=== PATIENT | male | born 1970 | race Caucasian/White ===

== ENCOUNTER 2017-01-05 16:36 | Emergency (ER) | payer SELFPAY ==
[~2017-01-05] VITALS: Ht 170.2 cm; Wt 81.6 kg
[~2017-01-05 16:36] MED LIST: LISI30TA4 PO; LORA2TAB PO; TEMA30CA PO; brintellix PO
[2017-01-05 16:44] VITALS: BP 154/99
--- NOTE | 2017-01-05 17:10 | PHYS DOC ---
Past Medical History Past Medical History: Anxiety, Depression, Hypertension Past Surgical History: No Surgical History Alcohol Use: Sober Drug Use: None Adult General Chief Complaint Chief Complaint: HIP PAIN HPI HPI Patient is a 46 year old male presents to the emergency department stating that he's been having right hip pain and discomfort for a long time. Patient states today he was standing in his right leg gave out. He has not taken anything for pain and discomfort. His significant other states that he was awakened every hour for pain and discomfort to the night last night. Patient denies any numbness or tingling down to the lower extremity however he does state that the pain does radiate into the upper thigh. Patient also states that he occasionally has some back pain and discomfort associated with it. Patient denies any trauma or injury to his back. Review of Systems Review of Systems Constitutional: Denies fever or chills [] Eyes: Denies change in visual acuity, redness, or eye pain [] HENT: Denies nasal congestion or sore throat [] Respiratory: Denies cough or shortness of breath [] Cardiovascular: No additional information not addressed in HPI [] GI: Denies abdominal pain, nausea, vomiting, bloody stools or diarrhea [] : Denies dysuria or hematuria [] Musculoskeletal: Right lower back pain, hip pain Integument: Denies rash or skin lesions [] Neurologic: Denies headache, focal weakness or sensory changes [] Endocrine: Denies polyuria or polydipsia [] Current Medications Current Medications Current Medications Medications (Trade) Dose Ordered Sig/[facility] Start Time Stop Time Status Last Admin Dose Admin Ibuprofen (Motrin) 800 mg 1X ONCE 01/05/17 17:15 01/05/17 17:16 DC 01/05/17 17:27 800 MG Allergies Allergies Allergies Coded Allergies Type Severity Reaction Last Updated Verified No Known Drug Allergies 11/26/13 No Physical Exam Physical Exam Constitutional: Well developed, well nourished, no acute distress, non-toxic appearance. [] HENT: Normocephalic, atraumatic, bilateral external ears normal, oropharynx moist, no oral exudates, nose normal. [] Eyes: PERRLA, EOMI, conjunctiva normal, no discharge. [] Neck: Normal range of motion, no tenderness, supple, no stridor. [] Cardiovascular:Heart rate regular rhythm, no murmur [] Lungs & Thorax: Bilateral breath sounds clear to auscultation [] Skin: Warm, dry, no erythema, no rash. [] Back: No tenderness Extremities: Right hip tenderness noted, no cyanosis, no clubbing, ROM intact, no edema. Peripheral pulses 2+, Refill brisk less than 2 seconds. Patient's able to ambulate with a somewhat of a good steady gait. Neurologic: Alert and oriented X 3, normal motor function, normal sensory function, no focal deficits noted. [] Psychologic: Affect normal, judgement normal, mood normal. [] Current Patient Data Vital Signs Vital Signs Date Time Temp Pulse Resp B/P (MAP) Pulse Ox O2 Delivery O2 Flow Rate FiO2 01/05/17 16:44 97.9 92 18 98 Room Air 97.9 EKG EKG [] Radiology/Procedures Radiology/Procedures [] Course & Med Decision Making Course & Med Decision Making Pertinent Labs and Imaging studies reviewed. (See chart for details) X-rays were negative per Dr. Shin. Patient will be discharged home with recommendations for ibuprofen 800 mg every 8 hours. He'll be provided with prescription for Flexeril with recommendations to follow-up with a orthopedic or primary care physician in the next week. Signs symptoms to return back to emergency prior has been provided. Patient was also instructed Flexeril will cause drowsiness do not take any be alert and oriented. Patient agrees with discharge instructions, treatment regimens and follow-up recommendations. All questions and concerns were answered at patient's bedside. Dragon Disclaimer Dragon Disclaimer This electronic medical record was generated, in whole or in part, using a voice recognition dictation system. Departure Departure Impression: Primary Impression: Hip pain, right Disposition: 01 HOME, SELF-CARE Condition: STABLE Referrals: CHIARA RICHARDSON (PCP) Patient Instructions: Hip Pain Additional Instructions: Your x-rays were negative for any bony abnormalities. Ibuprofen 800 mg every 8 hours they sure you take this medication with food as it may cause an upset stomach. Flexeril will help with muscle spasms and discomfort around the sciatic area. This medication will cause drowsiness do not take any be alert and oriented. Ice packs on 20 minutes off 20 minutes several times a day. Follow-up with your primary care physician or orthopedic within the next week. Return back to emergency prior signs symptoms of become worse. Scripts Cyclobenzaprine Hcl (CYCLOBENZAPRINE HCL) 10 Mg Tablet 10 MG PO TID, #30 TAB Prov: NANCY BRYAN APRN 01/05/17 NANCY BRYAN APRN Jan 05, 2017 17:10
[2017-01-05] MEDS ORDERED: IBUPROFEN 800 MG TABLET. PO ONE (17:15)
[2017-01-05] MEDS ORDERED: CYCL10TA2 PO (17:52)
--- NOTE | 2017-01-06 10:52 | RAD ---
AP pelvis radiograph to include AP and lateral radiographs of the right hip January 05, 2017 Clinical history: Chronic right hip pain for the last year. The patient's right hip gave out earlier today. An AP digital radiograph of the pelvis to include both hips was obtained. AP and lateral digital radiographs of the right hip were obtained. No pelvic bone fracture is seen. No fracture or dislocation of either hip is noted. Moderate to severe degenerative changes are seen involving both hips, right greater than left. These consist of joint compartment narrowing, subchondral sclerosis and osteophyte formation. Subchondral cyst formation is seen bilaterally. Impression: Moderate to severe degenerative changes are seen involving both hips, right greater than left. No acute osseous abnormality is seen.
== END 2017-01-05 18:07 | disposition home or self-care (01) ==
LOC: ER 16:36
DX: M25.551 Pain in right hip (principal); M54.5 Low back pain; F41.9 Anxiety disorder, unspecified; F32.9 Major depressive disorder, single episode, unspecified; I10 Essential (primary) hypertension
CPT/HCPCS: 73502; 99284

== ENCOUNTER 2018-05-20 10:13 | Emergency (ER) | payer SELFPAY ==
[~2018-05-20] VITALS: Ht 170.2 cm; Wt 81.6 kg
[~2018-05-20 10:13] MED LIST changes: +CYCL10TA2 PO
[2018-05-20 10:42] VITALS: BP 153/92
[2018-05-20] MEDS ORDERED: KETOROLAC 60 MG/2 ML VIAL. IM ONE (10:45)
[2018-05-20] MEDS ORDERED: ORPHENADRINE CITRATE 60 MG/2 ML VIAL. IM ONE (10:45)
--- NOTE | 2018-05-20 11:17 | RAD ---
Indication: Right hip pain for 3 years, worse in last 6 months. No known injury TECHNIQUE: 2 views of the right hip COMPARISON: This exam from 01/05/2017 FINDINGS/ impression: No acute fracture or dislocation. Advanced right hip joint osteoarthritis. Electronically signed by: Arron Cheney DO (05/20/2018 11:13 AM) [facility]
[2018-05-20] MEDS ORDERED: ORPH100T PO (11:30)
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
== END 2018-05-20 11:42 | disposition home or self-care (01) ==
LOC: ER 10:13
DX: M25.551 Pain in right hip (principal); M54.41 Lumbago with sciatica, right side; I10 Essential (primary) hypertension
CPT/HCPCS: 73502; 96372; 99283; J1885; J2360

== ENCOUNTER 2018-08-04 11:19 | Inpatient (IN) | payer SELFPAY ==
[~2018-08-04] VITALS: Ht 170.2 cm; Wt 79.4 kg
[~2018-08-04 11:19] MED LIST changes: +ORPH100T PO
[2018-08-04] MEDS ORDERED: VANCOMYCIN 2 GM in IV NORMAL SALINE 500ML BAG 500 ML IV ONE (12:15)
[2018-08-04] MEDS ORDERED: VANCOMYCIN PER PHARMACY MC ONE (12:15)
[2018-08-04] MEDS ORDERED: DIPHTH,PERTUSS(ACELL),TET TOX 0.5 ML DISP.SYRIN. VAX IM ONE (12:15)
[2018-08-04] MEDS ORDERED: PIPERACILLIN/TAZOBACTAM 4.5 GM in IV NORMAL SALINE 100ML 100 ML IV ONE (12:15)
[2018-08-04 12:24] LABS: CALCIUM 9.2 mg/dL (8.5-10.1); CREATININE 0.7 mg/dL (0.7-1.3); GFR 119.9; POTASSIUM 3.7 mmol/L (3.5-5.1)
[2018-08-04 12:31] LABS: ALBUMIN/GLOBULIN RATIO 0.7 (1.0-1.7); TOTAL BILIRUBIN 0.7 mg/dL (0.2-1.0); TOTAL PROTEIN 7.3 g/dL (6.4-8.2)
--- NOTE | 2018-08-04 12:36 | PDOC1 ---
History and Physical Date of Admission Date of Admission DATE: 08/04/18 TIME: 12:36 Identification/Chief Complaint Chief Complaint seen in er , presents to the ED today with complaints of right hand swelling and redness that began 4 days ago. states he has not used IV drugs for a while. Patient denies any fever. states he works at [employer] and is poked with splinters often, wonders if these are spider bites, they look concerning for iv drug use with abscesses Past Medical History Past Medical History Past Medical History Past Medical History Past Medical History: Anxiety, Depression, Hypertension Past Surgical History: No Surgical History Alcohol Use: Sober Drug Use: None PAST HX IV DRUG ABUSE FAMILY HX FATHER DIABETES Cardiovascular: HTN Psych: Anxiety, Depression Renal/: No pertinent hx Family History Family History: Alcohol Abuse, Diabetes, Heart Disease Social History Smoke: <1 pack per day ALCOHOL: other Drugs: None Current Medications Current Medications Current Medications Sodium Chloride 1,000 ml @ 166.667 mls/hr Q6H IV ; Start 08/04/18 at 12:04; Stop 08/04/18 at 23:55 Piperacillin Sod/ Tazobactam Sod 4.5 gm/Sodium Chloride 100 ml @ 200 mls/hr 1X ONCE IV ; Start 08/04/18 at 12:15; Stop 08/04/18 at 12:44 Vancomycin HCl (Vanco Per Pharmacy) 1 each 1X ONCE [facility] ; Start 08/04/18 at 12:15 ; Stop 08/04/18 at 12:16; Status DC Diphtheria/ Tetanus/Acell Pertussis (Boostrix) 0.5 ml ONCE ONCE VAX IM ; Start 08/04/18 at 12:15; Stop 08/04/18 at 12:16; Status DC Vancomycin HCl 2 gm/Sodium Chloride 500 ml @ 250 mls/hr 1X ONCE IV ; Start 04/14 at 12:15; Stop 08/04/18 at 14:14 Active Scripts Active Orphenadrine Citrate 100 Mg Tablet.er 1 Tab PO BID Driving or alcohol intake while taking this medication Cyclobenzaprine Hcl 10 Mg Tablet 10 Mg PO TID Reported [brintellix] 10 10 Mg PO DAILY Lisinopril 30 Mg Tablet 30 Mg PO DAILY Lorazepam 2 Mg Tablet 3 Mg PO DAILY Temazepam 30 Mg Capsule 30 Mg PO HS PRN Allergies Allergies: Coded Allergies: No Known Drug Allergies (Unverified , 7/3/14) ROS Review of System Review of Systems Review of Systems Constitutional: pos fever or chills [] Eyes: Denies change in visual acuity, redness, or eye pain [] HENT: Denies nasal congestion or sore throat [] Respiratory: Denies cough or shortness of breath [] Cardiovascular: No additional information not addressed in HPI [] GI: Denies abdominal pain, nausea, vomiting, bloody stools or diarrhea [] : Denies dysuria or hematuria [] Musculoskeletal: Reports right hand swelling and redness Integument: Denies rash or skin lesions [] Neurologic: Denies headache, focal weakness or sensory changes [] 14 pt systems were reviewed and found to be within normal limits, except as documented General: YES: Chills, Fatigue, Malaise Eyes: No Blurry vision, No Decreased vision, No Double vision, No Dry eyes, No Excessive tearing, No Eye Pain, No Itchy Eyes, No Loss of vision, No Photophobia , No Scotomata, No Uses contacts, No Uses glasses, No Other HEENT: No: Heacaches, Visual Changes, Hearing change, Nasal congestion, Nasal discharge, Oral lesions, Sinus pain, Sore Throat, Epistaxis, Sneezing, Snoring, Tinnitus, Vertigo, Vocal changes, Other Respiratory: No: Cough, Hemoptysis, Orthopnea, Pleuritic Pain, Shortness of breath, SOB with excertion, Sputum Changes, Stridor, Tachypnea, Wheezing, Other Cardiovascular: No Chest Pain, No Palpitations, No Orthopnea, No Paroxysmal Noc. Dyspnea, No Edema, No Lt Headedness, No Other Gastrointestinal: No Nausea, No Vomiting, No Abdominal Pain, No Diarrhea, No Constipation, No Melena, No Hematochezia, No Other Musculoskeletal: Yes Joint Pain, Yes Joint Stiffness Neurological: No Behavorial Changes, No Bowel/Bladder ControlChng, No Confusion , No Dizziness, No Gait Disturbance, No Headaches, No Impaired Coord/balance, No Memory Loss, No Numbness/Tingling, No Seizures, No Speech Problems, No Tremors, No Visual Changes, No Weakness, No Other Skin: Yes Skin Lesion Changes Physical Exam Physical Exam Physical Exam Physical Exam Constitutional: Well developed, well nourished, no acute distress, non-toxic appearance. [] HENT: Normocephalic, atraumatic, bilateral external ears normal, oropharynx moist, no oral exudates, nose normal. [] Eyes: PERRLA, EOMI, conjunctiva normal, no discharge. [] Neck: Normal range of motion, no tenderness, supple, no stridor. [] Cardiovascular:Heart rate regular rhythm, no murmur [] Lungs & Thorax: Bilateral breath sounds clear to auscultation [] Abdomen: Bowel sounds normal, soft, no tenderness, no masses, no pulsatile masses. [] Skin: Right dorsal hand with moderate swelling, there is mild swelling around the wrist. There is multiple open wounds on the right hand, or significance is on the right fifth metacarpal approximately 0.5 x 0.5 cm with yellow drainage, moderate puss from the area. There is another open wound on the dorsal wrist approximately 2 x 1 cm with fluctuant There is moderate cellulitis of the right hand and small amount on the right fingers. Patient able to flex and extend the fingers. Patient able to flex and extend the wrist. Adequate radial, medial, ulnar sensation to the right hand. +2 right radial pulse. Back: No tenderness, no CVA tenderness. [] Extremities: No tenderness, no cyanosis, no clubbing, ROM intact, no edema. [] Neurologic: Alert and oriented X 3, normal motor function, normal sensory function, no focal deficits noted. [] Psychologic: Affect normal, judgement normal, mood normal. [] General: Alert, Oriented X3, Cooperative, moderate distress Lungs: Clear to auscultation Breasts: Not examined Abdomen: Soft Rectal Exam: not examined PELVIC: Examination not indicated Extremities: No clubbing, No cyanosis Neuro: Normal gait, Cranial nerves 3-12 NL Psych/Mental Status: Mental status NL, Mood NL Vitals Vitals Vital Signs Date Time Temp Pulse Resp B/P (MAP) Pulse Ox O2 Delivery O2 Flow Rate FiO2 08/04/18 11:50 97.8 103 20 132/74 (93) 95 Room Air 97.8 Labs Labs Laboratory Tests Test 08/04/18 11:50 Sodium Level 140 mmol/L (136-145) Potassium Level 3.7 mmol/L (3.5-5.1) Chloride Level 103 mmol/L (98-107) Carbon Dioxide Level 24 mmol/L (21-32) Anion Gap 13 (6-14) Blood Urea Nitrogen 5 mg/dL (8-26) Creatinine 0.7 mg/dL (0.7-1.3) Estimated GFR (Cockcroft-Gault) 119.9 BUN/Creatinine Ratio 7 (6-20) Glucose Level 129 mg/dL (70-99) Calcium Level 9.2 mg/dL (8.5-10.1) Total Bilirubin 0.7 mg/dL (0.2-1.0) Aspartate Amino Transf (AST/SGOT) 15 U/L (15-37) Alanine Aminotransferase (ALT/SGPT) 11 U/L (16-63) Alkaline Phosphatase 96 U/L (46-116) Total Protein 7.3 g/dL (6.4-8.2) Albumin 3.0 g/dL (3.4-5.0) Albumin/Globulin Ratio 0.7 (1.0-1.7) Laboratory Tests Test 08/04/18 11:50 Sodium Level 140 mmol/L (136-145) Potassium Level 3.7 mmol/L (3.5-5.1) Chloride Level 103 mmol/L (98-107) Carbon Dioxide Level 24 mmol/L (21-32) Anion Gap 13 (6-14) Blood Urea Nitrogen 5 mg/dL (8-26) Creatinine 0.7 mg/dL (0.7-1.3) Estimated GFR (Cockcroft-Gault) 119.9 BUN/Creatinine Ratio 7 (6-20) Glucose Level 129 mg/dL (70-99) Calcium Level 9.2 mg/dL (8.5-10.1) Total Bilirubin 0.7 mg/dL (0.2-1.0) Aspartate Amino Transf (AST/SGOT) 15 U/L (15-37) Alanine Aminotransferase (ALT/SGPT) 11 U/L (16-63) Alkaline Phosphatase 96 U/L (46-116) Total Protein 7.3 g/dL (6.4-8.2) Albumin 3.0 g/dL (3.4-5.0) Albumin/Globulin Ratio 0.7 (1.0-1.7) Images Images Three-view right hand dated 08/04/2018. No comparison available. CLINICAL INDICATION: Multiple right hand and wrist wound. FINDINGS: 3 views the right hand show normal bony alignment. No displaced fracture. There is an old healed fracture of the fifth metacarpal. No periostitis or bone destruction. Mild soft tissue swelling. No soft tissue gas. IMPRESSION: 1. Mild soft tissue swelling with no apparent underlying acute bony abnormality. 2. Old healed fracture of the fifth metacarpal. Electronically signed by: Tray Ambriz MD (08/04/2018 12:39 PM) [id number] VTE Prophylaxis Ordered VTE Prophylaxis Devices: Yes VTE Pharmacological Prophylaxi: Yes Assessment/Plan Assessment/Plan impression 1. severe cellulitis right hand and wrist, mri may be useful to exclude synovial / tendon/ involvement 2. hx iv drug abuse in past plan ortho consult mri right hand and wrist iv vanc blood cult ID CONSULT SQ LOVENOX DVT PROPHYLAXIS DT 90 MIN VISIT/ ADMIT TIME SHELBIE LANDIS MD Aug 04, 2018 12:36
--- NOTE | 2018-08-04 12:42 | RAD ---
Three-view right hand dated 08/04/2018. No comparison available. CLINICAL INDICATION: Multiple right hand and wrist wound. FINDINGS: 3 views the right hand show normal bony alignment. No displaced fracture. There is an old healed fracture of the fifth metacarpal. No periostitis or bone destruction. Mild soft tissue swelling. No soft tissue gas. IMPRESSION: 1. Mild soft tissue swelling with no apparent underlying acute bony abnormality. 2. Old healed fracture of the fifth metacarpal. Electronically signed by: Tray Ambriz MD (08/04/2018 12:39 PM) [id number]
[2018-08-04 12:45] VITALS: BP 129/87
[2018-08-04 12:46] LABS: BASO # 0.1 x10^3/uL (0.0-0.2); BASO % 1 % (0-3); EOS % 0 % (0-3); HEMATOCRIT 40.2 % (39.0-53.0); HEMOGLOBIN 13.4 g/dL (13.0-17.5); LYMPH # 1.1 x10^3/uL (1.0-4.8); LYMPH % 8 % (24-48); MEAN CORPUSCULAR HEMOGLOBIN 29 pg (25-35); MEAN CORPUSCULAR HGB CONC 33 g/dL (31-37); MEAN CORPUSCULAR VOLUME 86 fL (79-100); MONO # 0.7 x10^3/uL (0.0-1.1); MONO % 5 % (0-9); NEUT # 11.3 x10^3uL (1.8-7.7); NEUT % 86 % (31-73); PLATELET COUNT 243 x10^3/uL (140-400); RED BLOOD COUNT 4.67 x10^6/uL (4.30-5.70); RED CELL DISTRIBUTION WIDTH 13.9 % (11.5-14.5); WHITE BLOOD COUNT 13.2 x10^3/uL (4.0-11.0)
[2018-08-04] MEDS ORDERED: ONDANSETRON PF 4 MG/2 ML VIAL. IV PRN ×2 (13:00→16:15)
[2018-08-04] MEDS ORDERED: IV NORMAL SALINE 1000ML BAG 1,000 ML IV ONE (13:00)
[2018-08-04] MEDS: IV NORMAL SALINE 1000ML BAG 1,000 ML IV SCH ×3 (13:04→18:04)
[2018-08-04] MEDS ORDERED: MORPHINE SULFATE 4 MG/ML VIAL. ONE (13:07)
[2018-08-04] MEDS: MORPHINE SULFATE 4 MG/ML VIAL. IV PRN ×6 (13:09→23:45)
--- NOTE | 2018-08-04 13:55 | PHYS DOC ---
Past Medical History Past Medical History: Anxiety, Depression, Hypertension Past Surgical History: No Surgical History Alcohol Use: Sober Drug Use: None Adult General Chief Complaint Chief Complaint: SKIN PROBLEM HPI HPI Patient is a 47 year old male with history of IV drug use who presents to the ED today with complaints of right hand swelling and redness that began 4 days ago. Patient states he has not used IV drugs for a while. Patient denies any fever. Patient is right-handed. PCP none Review of Systems Review of Systems Constitutional: Denies fever or chills [] Eyes: Denies change in visual acuity, redness, or eye pain [] HENT: Denies nasal congestion or sore throat [] Respiratory: Denies cough or shortness of breath [] Cardiovascular: No additional information not addressed in HPI [] GI: Denies abdominal pain, nausea, vomiting, bloody stools or diarrhea [] : Denies dysuria or hematuria [] Musculoskeletal: Reports right hand swelling and redness Integument: Denies rash or skin lesions [] Neurologic: Denies headache, focal weakness or sensory changes [] All other systems were reviewed and found to be within normal limits, except as documented in this note. Current Medications Current Medications Current Medications Medications (Trade) Dose Ordered Sig/Tlyer Start Time Stop Time Status Last Admin Dose Admin Diphtheria/ Tetanus/Acell Pertussis (Boostrix) 0.5 ml ONCE ONCE 08/04/18 12:15 08/04/18 12:16 DC 08/04/18 13:09 0.5 ML Piperacillin Sod/ Tazobactam Sod 4.5 gm/Sodium Chloride 100 ml @ 200 mls/hr 1X ONCE 08/04/18 12:15 08/04/18 12:44 DC 08/04/18 13:05 200 MLS/HR Sodium Chloride 1,000 ml @ 166.667 mls/hr Q6H 08/04/18 12:04 08/04/18 23:55 08/04/18 13:04 166.667 MLS/HR Vancomycin HCl (Vanco Per Pharmacy) 1 each 1X ONCE 08/04/18 12:15 08/04/18 12:16 DC Vancomycin HCl 2 gm/Sodium Chloride 500 ml @ 250 mls/hr 1X ONCE 08/04/18 12:15 08/04/18 14:14 08/04/18 13:39 250 MLS/HR Allergies Allergies Allergies Coded Allergies Type Severity Reaction Last Updated Verified No Known Drug Allergies 11/26/13 No Physical Exam Physical Exam Constitutional: Well developed, well nourished, no acute distress, non-toxic appearance. [] HENT: Normocephalic, atraumatic, bilateral external ears normal, oropharynx moist, no oral exudates, nose normal. [] Eyes: PERRLA, EOMI, conjunctiva normal, no discharge. [] Neck: Normal range of motion, no tenderness, supple, no stridor. [] Cardiovascular:Heart rate regular rhythm, no murmur [] Lungs & Thorax: Bilateral breath sounds clear to auscultation [] Abdomen: Bowel sounds normal, soft, no tenderness, no masses, no pulsatile masses. [] Skin: Right dorsal hand with moderate swelling, there is mild swelling around the wrist. There is multiple open wounds on the right hand, or significance is on the right fifth metacarpal approximately 0.5 x 0.5 cm with yellow drainage, went ahead and expressed moderate puss from the area. There is another open wound on the dorsal wrist approximately 2 x 1 cm with fluctuant but patient is refusing to let me touch it. There is moderate cellulitis of the right hand and small amount on the right fingers. Patient able to flex and extend the fingers. Patient able to flex and extend the wrist. Adequate radial, medial, ulnar sensation to the right hand. +2 right radial pulse. Back: No tenderness, no CVA tenderness. [] Extremities: No tenderness, no cyanosis, no clubbing, ROM intact, no edema. [] Neurologic: Alert and oriented X 3, normal motor function, normal sensory function, no focal deficits noted. [] Psychologic: Affect normal, judgement normal, mood normal. [] Current Patient Data Vital Signs Vital Signs Date Time Temp Pulse Resp B/P (MAP) Pulse Ox O2 Delivery O2 Flow Rate FiO2 08/04/18 11:50 97.8 103 20 132/74 (93) 95 Room Air 97.8 Lab Values Laboratory Tests Test 08/04/18 11:50 Sodium Level 140 mmol/L (136-145) Potassium Level 3.7 mmol/L (3.5-5.1) Chloride Level 103 mmol/L (98-107) Carbon Dioxide Level 24 mmol/L (21-32) Anion Gap 13 (6-14) Blood Urea Nitrogen 5 mg/dL (8-26) L Creatinine 0.7 mg/dL (0.7-1.3) Estimated GFR (Cockcroft-Gault) 119.9 BUN/Creatinine Ratio 7 (6-20) Glucose Level 129 mg/dL (70-99) H Calcium Level 9.2 mg/dL (8.5-10.1) Total Bilirubin 0.7 mg/dL (0.2-1.0) Aspartate Amino Transferase (AST) 15 U/L (15-37) Alanine Aminotransferase (ALT) 11 U/L (16-63) L Alkaline Phosphatase 96 U/L (46-116) Total Protein 7.3 g/dL (6.4-8.2) Albumin 3.0 g/dL (3.4-5.0) L Albumin/Globulin Ratio 0.7 (1.0-1.7) L Procalcitonin < 0.10 ng/mL (0.00-0.10) Laboratory Tests 08/04/18 11:50 EKG EKG [] Radiology/Procedures Radiology/Procedures [] Course & Med Decision Making Course & Med Decision Making Pertinent Labs and Imaging studies reviewed. (See chart for details) This is a 47-year-old male patient with history of IV drug use presenting to the ED today with right hand abscess and cellulitis. Patient was started on a sepsis protocol including IV antibiotics, IV fluids, lactic. CBC with a WBC of 13.2, lactic is normal, CMP with no acute findings. Right hand x-rays negative for any acute findings. Consulted with Dr. De La Cruz who accepted patient for admission Consulted with Dr. Jacobs who will f/u with patient Dragon Disclaimer Dragon Disclaimer This electronic medical record was generated, in whole or in part, using a voice recognition dictation system. Departure Departure Impression: Primary Impression: Abscess of right hand Additional Impressions: Cellulitis of right hand IV drug user Disposition: ADMITTED INPATIENT Condition: STABLE Referrals: CHIARA RICHARDSON (PCP) Problem Qualifiers AVINASH IBANEZ APRN Aug 04, 2018 13:55
--- NOTE | 2018-08-04 14:46 | PDOC2 ---
KEHINDEDAYAMI Debbie EYEGLASS INSPECTOR 08/04/18 1446: CONSULT Date of Consult Date of Consult DATE: 08/04/18 TIME: 14:30 Reason for Consult Reason for Consult: Multiple abscessed areas on dorsal aspect of right hand. Referring Physician Referring Physician: Dr Baldwin Identification/Chief Complaint Chief Complaint Right hand abscesses open and draining. Source Source: Caregiver, Patient History of Present Illness Reason for Visit: Patient states that he was an IV drug user but has not used since early 2017. 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 Past Medical History Cardiovascular: HTN Psych: Anxiety, Depression Family History Family History: Diabetes, Heart Disease, Kidney Disease Social History 1 pack per day (since age 14) ALCOHOL: other Drugs: None Lives: with Family Current Problem List Problem List Problems Medical Problems: (1) Abscess of right hand Status: Acute (2) IV drug user Status: Acute Current Medications Current Medications Current Medications Sodium Chloride 1,000 ml @ 166.667 mls/hr Q6H IV Last administered on at 13:04; Start 08/04/18 at 12:04; Stop 08/04/18 at 23:55 Piperacillin Sod/ Tazobactam Sod 4.5 gm/Sodium Chloride 100 ml @ 200 mls/hr 1X ONCE IV Last administered on 08/04/18at 13:05; Start 08/04/18 at 12:15; Stop 08/04/18 at 12:44; Status DC Vancomycin HCl (Vanco Per Pharmacy) 1 each 1X ONCE [facility] ; Start 08/04/18 at 12:15 ; Stop 08/04/18 at 12:16; Status DC Diphtheria/ Tetanus/Acell Pertussis (Boostrix) 0.5 ml ONCE ONCE VAX IM Last administered on 08/04/18at 13:09; Start 08/04/18 at 12:15; Stop 08/04/18 at 12:16 ; Status DC Vancomycin HCl 2 gm/Sodium Chloride 500 ml @ 250 mls/hr 1X ONCE IV Last administered on 08/04/18at 13:39; Start 08/04/18 at 12:15; Stop 08/04/18 at 14:14 ; Status DC Ondansetron HCl (Zofran) 4 mg PRN Q8HRS PRN IV NAUSEA/VOMITING; Start 08/04/18 at 13:00; Stop 08/05/18 at 12:59 Morphine Sulfate (Morphine Sulfate) 4 mg PRN Q2HR PRN IV PAIN Last administered on 08/04/18at 13:09; Start 08/04/18 at 13:00; Stop 08/05/18 at 12:59 Sodium Chloride 1,000 ml @ 125 mls/hr 1X ONCE IV Last administered on at 13:40; Start 08/04/18 at 13:00; Stop 08/04/18 at 20:59 Morphine Sulfate (Morphine Sulfate) 4 mg STK-MED ONCE .ROUTE ; Start 08/04/18 at 13:07; Stop 08/04/18 at 13:08; Status DC Active Scripts Active Orphenadrine Citrate 100 Mg Tablet.er 1 Tab PO BID Driving or alcohol intake while taking this medication Cyclobenzaprine Hcl 10 Mg Tablet 10 Mg PO TID Reported [brintellix] 10 10 Mg PO DAILY Lisinopril 30 Mg Tablet 30 Mg PO DAILY Lorazepam 2 Mg Tablet 3 Mg PO DAILY Temazepam 30 Mg Capsule 30 Mg PO HS PRN Allergies Allergies: Coded Allergies: No Known Drug Allergies (Unverified , 11/26/13) Physical Exam General: Alert, Oriented X3, Cooperative, moderate distress Extremities: Normal pulses MUSCULOSKELETAL: Abnormal exam of right (hand with multiple abscesses with one large open draining wound on dorsal wrist and one on dorsal aspect of dorsal hand ulnar side and a third in center of dorsal right hand ) Vitals VITALS Vital Signs Date Time Temp Pulse Resp B/P (MAP) Pulse Ox O2 Delivery O2 Flow Rate FiO2 08/04/18 13:21 85 18 135/78 (97) 98 Room Air 08/04/18 12:45 98.1 98.1 Labs Labs Laboratory Tests Test 08/04/18 11:50 08/04/18 12:35 Sodium Level 140 mmol/L (136-145) Potassium Level 3.7 mmol/L (3.5-5.1) Chloride Level 103 mmol/L (98-107) Carbon Dioxide Level 24 mmol/L (21-32) Anion Gap 13 (6-14) Blood Urea Nitrogen 5 mg/dL (8-26) Creatinine 0.7 mg/dL (0.7-1.3) Estimated GFR (Cockcroft-Gault) 119.9 BUN/Creatinine Ratio 7 (6-20) Glucose Level 129 mg/dL (70-99) Calcium Level 9.2 mg/dL (8.5-10.1) Total Bilirubin 0.7 mg/dL (0.2-1.0) Aspartate Amino Transf (AST/SGOT) 15 U/L (15-37) Alanine Aminotransferase (ALT/SGPT) 11 U/L (16-63) Alkaline Phosphatase 96 U/L (46-116) Total Protein 7.3 g/dL (6.4-8.2) Albumin 3.0 g/dL (3.4-5.0) Albumin/Globulin Ratio 0.7 (1.0-1.7) Procalcitonin < 0.10 ng/mL (0.00-0.10) White Blood Count 13.2 x10^3/uL (4.0-11.0) Red Blood Count 4.67 x10^6/uL (4.30-5.70) Hemoglobin 13.4 g/dL (13.0-17.5) Hematocrit 40.2 % (39.0-53.0) Mean Corpuscular Volume 86 fL (79-100) Mean Corpuscular Hemoglobin 29 pg (25-35) Mean Corpuscular Hemoglobin Concent 33 g/dL (31-37) Red Cell Distribution Width 13.9 % (11.5-14.5) Platelet Count 243 x10^3/uL (140-400) Neutrophils (%) (Auto) 86 % (31-73) Lymphocytes (%) (Auto) 8 % (24-48) Monocytes (%) (Auto) 5 % (0-9) Eosinophils (%) (Auto) 0 % (0-3) Basophils (%) (Auto) 1 % (0-3) Neutrophils # (Auto) 11.3 x10^3uL (1.8-7.7) Lymphocytes # (Auto) 1.1 x10^3/uL (1.0-4.8) Monocytes # (Auto) 0.7 x10^3/uL (0.0-1.1) Eosinophils # (Auto) 0.0 x10^3/uL (0.0-0.7) Basophils # (Auto) 0.1 x10^3/uL (0.0-0.2) Lactic Acid Level 1.0 mmol/L (0.4-2.0) Laboratory Tests Test 08/04/18 11:50 08/04/18 12:35 Sodium Level 140 mmol/L (136-145) Potassium Level 3.7 mmol/L (3.5-5.1) Chloride Level 103 mmol/L (98-107) Carbon Dioxide Level 24 mmol/L (21-32) Anion Gap 13 (6-14) Blood Urea Nitrogen 5 mg/dL (8-26) Creatinine 0.7 mg/dL (0.7-1.3) Estimated GFR (Cockcroft-Gault) 119.9 BUN/Creatinine Ratio 7 (6-20) Glucose Level 129 mg/dL (70-99) Calcium Level 9.2 mg/dL (8.5-10.1) Total Bilirubin 0.7 mg/dL (0.2-1.0) Aspartate Amino Transf (AST/SGOT) 15 U/L (15-37) Alanine Aminotransferase (ALT/SGPT) 11 U/L (16-63) Alkaline Phosphatase 96 U/L (46-116) Total Protein 7.3 g/dL (6.4-8.2) Albumin 3.0 g/dL (3.4-5.0) Albumin/Globulin Ratio 0.7 (1.0-1.7) Procalcitonin < 0.10 ng/mL (0.00-0.10) White Blood Count 13.2 x10^3/uL (4.0-11.0) Red Blood Count 4.67 x10^6/uL (4.30-5.70) Hemoglobin 13.4 g/dL (13.0-17.5) Hematocrit 40.2 % (39.0-53.0) Mean Corpuscular Volume 86 fL (79-100) Mean Corpuscular Hemoglobin 29 pg (25-35) Mean Corpuscular Hemoglobin Concent 33 g/dL (31-37) Red Cell Distribution Width 13.9 % (11.5-14.5) Platelet Count 243 x10^3/uL (140-400) Neutrophils (%) (Auto) 86 % (31-73) Lymphocytes (%) (Auto) 8 % (24-48) Monocytes (%) (Auto) 5 % (0-9) Eosinophils (%) (Auto) 0 % (0-3) Basophils (%) (Auto) 1 % (0-3) Neutrophils # (Auto) 11.3 x10^3uL (1.8-7.7) Lymphocytes # (Auto) 1.1 x10^3/uL (1.0-4.8) Monocytes # (Auto) 0.7 x10^3/uL (0.0-1.1) Eosinophils # (Auto) 0.0 x10^3/uL (0.0-0.7) Basophils # (Auto) 0.1 x10^3/uL (0.0-0.2) Lactic Acid Level 1.0 mmol/L (0.4-2.0) Images Images xrays show swelling throughout the right hand Assessment/Plan Assessment/Plan Patient is an IV drug user that states that he has not used drugs since July of 2017. 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 He states that the largest of the abscesses opened up after he placed the hand under a heating blanket. These wounds are draining purulent material and he was placed on IV antibiotics of Vanco per ER. Will discuss with Dr Linares for surgical planning for possible I&D of the hand tomorrow. NPO after midnight Consult Infectious disease. RAYMUNDO LINARES MD 08/05/18 1010: CONSULT Attending Co-Sign Consult as above. Patient says he digs at the splinters with his teeth. He also stated to me he has not used IV drugs since July 2017. The patient was seen and interviewed as well as examined at the bedside. The chart was reviewed. The case was discussed. I recommended incision and drainage of the right hand abscesses. DAYAMI BUSBY APRN Aug 04, 2018 14:46 RAYMUNDO LINARES MD Aug 05, 2018 10:10
[2018-08-04 14:48] LABS: % LYMPHS 7 % (24-48); % MONOS 5 % (0-10); % SEGS 88 % (35-66); PLT ESTIMATE ADEQUATE (ADEQUATE)
[2018-08-04 15:00] VITALS: BP 131/85
[2018-08-04] MEDS ORDERED: ACETAMINOPHEN 325 MG TABLET. PO PRN (16:15)
[2018-08-04] MEDS ORDERED: MAG HYDROX/ALUMINUM HYD/SIMETH 30 ML ORAL.SUSP PO PRN (16:15)
[2018-08-04] MEDS ORDERED: DOCUSATE SODIUM 100 MG CAPSULE. PO PRN (16:15)
[2018-08-04] MEDS ORDERED: cloNIDine HCL 0.1 MG TABLET PO PRN (16:15)
[2018-08-04] MEDS ORDERED: ZOLPIDEM 5 MG TABLET. PO PRN (16:15)
[2018-08-04] MEDS ORDERED: LORazepam 0.5 MG TABLET PO PRN (16:15)
[2018-08-04] MEDS ORDERED: HYDROmorphone 2 MG/ML VIAL IV PRN (16:15)
[2018-08-04] MEDS ORDERED: SODIUM PHOSPHATES 19/7GM 133 ML ENEMA. PR PRN (16:15)
[2018-08-04] MEDS ORDERED: 0.9 % SODIUM CHLORIDE 3ML DISP.SYRIN. IV PRN (16:15)
[2018-08-04] MEDS ORDERED: guaiFENesin ORAL 200 MG/10 ML LIQUID. PO PRN (16:15)
[2018-08-04] MEDS ORDERED: ACETAMINOPHEN 650 MG/20.3 ML SOLUTION. GT PRN (16:15)
[2018-08-04] MEDS: VANCOMYCIN PER PHARMACY MC PRN (16:31)
--- NOTE | 2018-08-04 16:32 | NUR ---
Pharmacy Vancomycin Dosing Note S: Consulted to monitor and dose vancomycin started 08/04/18. O: ROBERT SHULTZ is a 47 year old M with abscess, cellulitis of hand. Other Antibiotics: ZOSYN 4.5G IV Q6HRS LABS: Last BUN: 5 Last Creatinine: 0.7 Creatinine Clearance: > 100 mL/min Last WBC: 13.2 Tmax (past 24 hours): 98.1 Microbiology: URINE CX IN PROCESS INFX SITE CX NEEDS TO BE COLLECTED A: Patient requires vancomycin for cellulitis of hand, with abscess. Goal trough 10-20 mcg/ml as no bony involvement found on X-ray. Patient still to have MRI. His SCr is 0.7 with an eCrCl of > 100 ml/min. P: 1. Initiate Vancomycin 2000 mg IV x 1 dose, then 1000 mg IV q8h 2. Follow up Trough level on 08/05/18 at 1330 3. Pharmacy will continue to monitor, follow and adjust therapy as needed. KASEY B[place], [facility], 08/04/18 [id number]
[2018-08-04 17:17] LABS: BILIRUBIN,URINE NEGATIVE (NEG); CLARITY,URINE CLEAR; COLOR,URINE YELLOW; NITRITE,URINE NEGATIVE (NEG); PROTEIN,URINE NEGATIVE (NEG-TRACE); UROBILINOGEN,URINE 0.2 mg/dL (0.2 mg/dL)
[2018-08-04 17:24] LABS: BACTERIA,URINE FEW /HPF (0-FEW); RBC,URINE 0 /HPF (0-2); SQUAMOUS EPITHELIAL CELL,UR FEW /LPF
[2018-08-04] MEDS: PIPERACILLIN/TAZOBACTAM 4.5 GM in IV NORMAL SALINE 100ML 100 ML IV SCH ×2 (18:03→23:44)
[2018-08-04 19:00] VITALS: BP 111/78
[2018-08-04] MEDS ORDERED: IPRATRPIUM/ALBUTEROL 0.5/2.5MG 3 ML NEBU. NEB SCH (20:00)
[2018-08-04] MEDS: VANCOMYCIN 1 GM in IV NORMAL SALINE 250ML 250 ML IV SCH (22:00)
[2018-08-04] MEDS ORDERED: ALBUTEROL SULFATE 2.5 MG/3 ML NEBU. NEB PRN (22:45)
[2018-08-04 23:00] VITALS: BP 123/70
[2018-08-05] MEDS: MORPHINE SULFATE 4 MG/ML VIAL. IV PRN ×4 (01:37→08:19)
[2018-08-05 03:00] VITALS: BP 132/72
[2018-08-05 04:16] LABS: BASO % 0 % (0-3); EOS # 0.1 x10^3/uL (0.0-0.7); EOS % 1 % (0-3); HEMATOCRIT 40.7 % (39.0-53.0); HEMOGLOBIN 13.5 g/dL (13.0-17.5); LYMPH # 2.3 x10^3/uL (1.0-4.8); LYMPH % 17 % (24-48); MEAN CORPUSCULAR HEMOGLOBIN 29 pg (25-35); MEAN CORPUSCULAR HGB CONC 33 g/dL (31-37); MEAN CORPUSCULAR VOLUME 86 fL (79-100); MONO # 1.1 x10^3/uL (0.0-1.1); MONO % 8 % (0-9); NEUT % 75 % (31-73); PLATELET COUNT 263 x10^3/uL (140-400); RED BLOOD COUNT 4.71 x10^6/uL (4.30-5.70); RED CELL DISTRIBUTION WIDTH 13.7 % (11.5-14.5); WHITE BLOOD COUNT 13.5 x10^3/uL (4.0-11.0)
[2018-08-05 04:52] LABS: CALCIUM 8.6 mg/dL (8.5-10.1); CREATININE 0.9 mg/dL (0.7-1.3); GFR 89.7; POTASSIUM 3.5 mmol/L (3.5-5.1)
--- NOTE | 2018-08-05 05:31 | NUR ---
Patient has set cellphone to alarm Q2h for IV Morphine. Pain is always "more than a 10." NPO since MN, surgery scheduled for today.
[2018-08-05] MEDS: PIPERACILLIN/TAZOBACTAM 4.5 GM in IV NORMAL SALINE 100ML 100 ML IV SCH ×3 (06:21→18:30)
--- NOTE | 2018-08-05 06:25 | RAD ---
Indication:FEVER TECHNIQUE:Portable AP chest X-ray COMPARISON:None FINDINGS: Heart is normal in size. Bilateral interstitial and nodular opacities are seen. No focal consolidation. No pneumothorax or pleural effusion. Visualized bony thorax within normal limits. IMPRESSION: Findings suggests bronchitis/atypical/viral infection. Electronically signed by: Arron Cheney DO (08/05/2018 6:22 AM) [facility]
[2018-08-05 07:00] VITALS: BP 125/73
[2018-08-05] MEDS: IV NORMAL SALINE 1000ML BAG 1,000 ML IV SCH ×3 (07:24→22:41)
[2018-08-05] MEDS: VANCOMYCIN 1 GM in IV NORMAL SALINE 250ML 250 ML IV SCH ×2 (07:25→16:06)
--- NOTE | 2018-08-05 08:44 | PDOC ---
Infectious Disease Note Vital Sign Vital Signs Vital Signs Date Time Temp Pulse Resp B/P (MAP) Pulse Ox O2 Delivery O2 Flow Rate FiO2 08/05/18 08:19 16 Room Air 08/05/18 03:00 98.2 76 132/72 (92) 98 98.2 Labs Lab Laboratory Tests Test 08/04/18 11:50 08/04/18 12:35 08/04/18 16:05 08/04/18 17:00 Sodium Level 140 mmol/L (136-145) Potassium Level 3.7 mmol/L (3.5-5.1) Chloride Level 103 mmol/L (98-107) Carbon Dioxide Level 24 mmol/L (21-32) Anion Gap 13 (6-14) Blood Urea Nitrogen 5 mg/dL (8-26) Creatinine 0.7 mg/dL (0.7-1.3) Estimated GFR (Cockcroft-Gault) 119.9 BUN/Creatinine Ratio 7 (6-20) Glucose Level 129 mg/dL (70-99) Calcium Level 9.2 mg/dL (8.5-10.1) Total Bilirubin 0.7 mg/dL (0.2-1.0) Aspartate Amino Transf (AST/SGOT) 15 U/L (15-37) Alanine Aminotransferase (ALT/SGPT) 11 U/L (16-63) Alkaline Phosphatase 96 U/L (46-116) Total Protein 7.3 g/dL (6.4-8.2) Albumin 3.0 g/dL (3.4-5.0) 3.0 g/dL (3.4-5.0) Albumin/Globulin Ratio 0.7 (1.0-1.7) Procalcitonin < 0.10 ng/mL (0.00-0.10) White Blood Count 13.2 x10^3/uL (4.0-11.0) Red Blood Count 4.67 x10^6/uL (4.30-5.70) Hemoglobin 13.4 g/dL (13.0-17.5) Hematocrit 40.2 % (39.0-53.0) Mean Corpuscular Volume 86 fL (79-100) Mean Corpuscular Hemoglobin 29 pg (25-35) Mean Corpuscular Hemoglobin Concent 33 g/dL (31-37) Red Cell Distribution Width 13.9 % (11.5-14.5) Platelet Count 243 x10^3/uL (140-400) Neutrophils (%) (Auto) 86 % (31-73) Lymphocytes (%) (Auto) 8 % (24-48) Monocytes (%) (Auto) 5 % (0-9) Eosinophils (%) (Auto) 0 % (0-3) Basophils (%) (Auto) 1 % (0-3) Neutrophils # (Auto) 11.3 x10^3uL (1.8-7.7) Lymphocytes # (Auto) 1.1 x10^3/uL (1.0-4.8) Monocytes # (Auto) 0.7 x10^3/uL (0.0-1.1) Eosinophils # (Auto) 0.0 x10^3/uL (0.0-0.7) Basophils # (Auto) 0.1 x10^3/uL (0.0-0.2) Segmented Neutrophils % 88 % (35-66) Lymphocytes % 7 % (24-48) Monocytes % 5 % (0-10) Platelet Estimate Adequate (ADEQUATE) Lactic Acid Level 1.0 mmol/L (0.4-2.0) 0.9 mmol/L (0.4-2.0) HIV (1&2) Antibody Screen Nonreactive (Nonreactive) Urine Collection Type Void Urine Color Yellow Urine Clarity Clear Urine pH 6.0 Urine Specific Hecker 1.025 Urine Protein Negative mg/dL (NEG-TRACE) Urine Glucose (UA) Negative mg/dL (NEG) Urine Ketones (Stick) Trace mg/dL (NEG) Urine Blood Negative (NEG) Urine Nitrite Negative (NEG) Urine Bilirubin Negative (NEG) Urine Urobilinogen Dipstick 0.2 mg/dL (0.2 mg/dL) Urine Leukocyte Esterase Negative (NEG) Urine RBC 0 /HPF (0-2) Urine WBC 5-10 /HPF (0-4) Urine Squamous Epithelial Cells Few /LPF Urine Bacteria Few /HPF (0-FEW) Urine Mucus Slight /LPF Test 08/05/18 03:25 White Blood Count 13.5 x10^3/uL (4.0-11.0) Red Blood Count 4.71 x10^6/uL (4.30-5.70) Hemoglobin 13.5 g/dL (13.0-17.5) Hematocrit 40.7 % (39.0-53.0) Mean Corpuscular Volume 86 fL (79-100) Mean Corpuscular Hemoglobin 29 pg (25-35) Mean Corpuscular Hemoglobin Concent 33 g/dL (31-37) Red Cell Distribution Width 13.7 % (11.5-14.5) Platelet Count 263 x10^3/uL (140-400) Neutrophils (%) (Auto) 75 % (31-73) Lymphocytes (%) (Auto) 17 % (24-48) Monocytes (%) (Auto) 8 % (0-9) Eosinophils (%) (Auto) 1 % (0-3) Basophils (%) (Auto) 0 % (0-3) Neutrophils # (Auto) 10.0 x10^3uL (1.8-7.7) Lymphocytes # (Auto) 2.3 x10^3/uL (1.0-4.8) Monocytes # (Auto) 1.1 x10^3/uL (0.0-1.1) Eosinophils # (Auto) 0.1 x10^3/uL (0.0-0.7) Basophils # (Auto) 0.0 x10^3/uL (0.0-0.2) Sodium Level 145 mmol/L (136-145) Potassium Level 3.5 mmol/L (3.5-5.1) Chloride Level 107 mmol/L (98-107) Carbon Dioxide Level 27 mmol/L (21-32) Anion Gap 11 (6-14) Blood Urea Nitrogen 7 mg/dL (8-26) Creatinine 0.9 mg/dL (0.7-1.3) Estimated GFR (Cockcroft-Gault) 89.7 Glucose Level 102 mg/dL (70-99) Calcium Level 8.6 mg/dL (8.5-10.1) Objective Assessment Right hand infection Leukocytosis H/o MRSA H/o IVDA - last 09/2017 Pyuria Plan Plan of Care Cont Vanc and zosyn Add Zyvox for toxin shut down Contact isolation F/u labs and cults. Expect WBC to increase if gets Dexamethasone prior to surgery UDS - add to urine in lab - d/w lab Await surgical findings Thank you # [id number] BUNNY CARDENAS MD Aug 05, 2018 08:44
[2018-08-05 08:54] LABS: BARBITURATES NEG (NEG); BENZODIAZEPINES POS (NEG); CANNABINOIDS NEG (NEG); COCAINE NEG (NEG); METHADONE NEG (NEG); OPIATES POS (NEG); PHENCYCLIDINE NEG (NEG)
[2018-08-05] MEDS: ENOXAPARIN 40 MG/0.4 ML SYRINGE. SQ SCH (09:00)
[2018-08-05 09:03] LABS: AMPHETAMINE/METHAMPHETAMINE NEG (NEG)
[2018-08-05] MEDS ORDERED: IV RINGERS,LACTATED 1000ML 1,000 ML IV SCH (09:04)
[2018-08-05] MEDS ORDERED: MORPHINE SULFATE 2 MG/ML VIAL. IV PRN (09:15)
[2018-08-05] MEDS ORDERED: PROCHLORPERAZINE 10 MG/2 ML VIAL. IV PRN (09:15)
[2018-08-05] MEDS ORDERED: HYDROmorphone 2 MG/ML VIAL IV PRN (09:15)
[2018-08-05] MEDS ORDERED: ONDANSETRON PF 4 MG/2 ML VIAL. IV PRN (09:15)
[2018-08-05] MEDS ORDERED: fentaNYL PF VIAL 100 MCG/2 ML VIAL ONE ×2 (10:28→13:20)
[2018-08-05] MEDS ORDERED: ONDANSETRON PF 4 MG/2 ML VIAL. ONE (10:46)
[2018-08-05] MEDS ORDERED: KETOROLAC 30 MG/ML INJ FOR OR. INJ ONE (10:46)
[2018-08-05] MEDS ORDERED: FAMOTIDINE 20 MG/2 ML VIAL ONE (10:46)
[2018-08-05] MEDS ORDERED: DEXAMETHASONE SOD PHOS 20 MG/5 ML VIAL. ONE (10:46)
[2018-08-05] MEDS ORDERED: MIDAZOLAM HCL/PF 2 MG/2 ML VIAL. ONE (10:46)
[2018-08-05] MEDS ORDERED: PROPOFOL 20 ML IV ONE (10:46)
[2018-08-05] MEDS ORDERED: LIDOCAINE 2% PF 5 ML VIAL. ONE (10:46)
[2018-08-05] MEDS: fentaNYL PF VIAL 100 MCG/2 ML VIAL IV PRN ×5 (10:50→13:53)
[2018-08-05] MEDS ORDERED: BUPIVACAINE-EPI 0.25%-1:200000 MPF 30 ML VIAL. ONE (11:04)
--- NOTE | 2018-08-05 11:27 | PDOC ---
PROGRESS NOTES Chief Complaint Chief Complaint Right hand cellulitis and abscess History of IV drug use last used 2018 Sepsis POA History of Present Illness History of Present Illness Out having IND of the right hand ID on case I PLAN: Postop care Postop labs IV antibiotics Vitals Vitals Vital Signs Date Time Temp Pulse Resp B/P (MAP) Pulse Ox O2 Delivery O2 Flow Rate FiO2 08/05/18 11:10 20 98 Room Air 08/05/18 09:19 99.2 79 146/90 99.2 Physical Exam General: Alert, Oriented X3, Cooperative, moderate distress Abdomen: Soft Extremities: No clubbing, No cyanosis Labs LABS Laboratory Tests Test 08/04/18 11:50 08/04/18 12:35 08/04/18 16:05 08/04/18 17:00 Sodium Level 140 mmol/L (136-145) Potassium Level 3.7 mmol/L (3.5-5.1) Chloride Level 103 mmol/L (98-107) Carbon Dioxide Level 24 mmol/L (21-32) Anion Gap 13 (6-14) Blood Urea Nitrogen 5 mg/dL (8-26) Creatinine 0.7 mg/dL (0.7-1.3) Estimated GFR (Cockcroft-Gault) 119.9 BUN/Creatinine Ratio 7 (6-20) Glucose Level 129 mg/dL (70-99) Calcium Level 9.2 mg/dL (8.5-10.1) Total Bilirubin 0.7 mg/dL (0.2-1.0) Aspartate Amino Transf (AST/SGOT) 15 U/L (15-37) Alanine Aminotransferase (ALT/SGPT) 11 U/L (16-63) Alkaline Phosphatase 96 U/L (46-116) Total Protein 7.3 g/dL (6.4-8.2) Albumin 3.0 g/dL (3.4-5.0) 3.0 g/dL (3.4-5.0) Albumin/Globulin Ratio 0.7 (1.0-1.7) Procalcitonin < 0.10 ng/mL (0.00-0.10) White Blood Count 13.2 x10^3/uL (4.0-11.0) Red Blood Count 4.67 x10^6/uL (4.30-5.70) Hemoglobin 13.4 g/dL (13.0-17.5) Hematocrit 40.2 % (39.0-53.0) Mean Corpuscular Volume 86 fL (79-100) Mean Corpuscular Hemoglobin 29 pg (25-35) Mean Corpuscular Hemoglobin Concent 33 g/dL (31-37) Red Cell Distribution Width 13.9 % (11.5-14.5) Platelet Count 243 x10^3/uL (140-400) Neutrophils (%) (Auto) 86 % (31-73) Lymphocytes (%) (Auto) 8 % (24-48) Monocytes (%) (Auto) 5 % (0-9) Eosinophils (%) (Auto) 0 % (0-3) Basophils (%) (Auto) 1 % (0-3) Neutrophils # (Auto) 11.3 x10^3uL (1.8-7.7) Lymphocytes # (Auto) 1.1 x10^3/uL (1.0-4.8) Monocytes # (Auto) 0.7 x10^3/uL (0.0-1.1) Eosinophils # (Auto) 0.0 x10^3/uL (0.0-0.7) Basophils # (Auto) 0.1 x10^3/uL (0.0-0.2) Segmented Neutrophils % 88 % (35-66) Lymphocytes % 7 % (24-48) Monocytes % 5 % (0-10) Platelet Estimate Adequate (ADEQUATE) Lactic Acid Level 1.0 mmol/L (0.4-2.0) 0.9 mmol/L (0.4-2.0) HIV (1&2) Antibody Screen Nonreactive (Nonreactive) Urine Collection Type Void Urine Color Yellow Urine Clarity Clear Urine pH 6.0 Urine Specific [place] 1.025 Urine Protein Negative mg/dL (NEG-TRACE) Urine Glucose (UA) Negative mg/dL (NEG) Urine Ketones (Stick) Trace mg/dL (NEG) Urine Blood Negative (NEG) Urine Nitrite Negative (NEG) Urine Bilirubin Negative (NEG) Urine Urobilinogen Dipstick 0.2 mg/dL (0.2 mg/dL) Urine Leukocyte Esterase Negative (NEG) Urine RBC 0 /HPF (0-2) Urine WBC 5-10 /HPF (0-4) Urine Squamous Epithelial Cells Few /LPF Urine Bacteria Few /HPF (0-FEW) Urine Mucus Slight /LPF Urine Opiates Screen Pos (NEG) Urine Methadone Screen Neg (NEG) Urine Barbiturates Neg (NEG) Urine Phencyclidine Screen Neg (NEG) Urine Amphetamine/Methamphetamine Neg (NEG) Urine Benzodiazepines Screen Pos (NEG) Urine Cocaine Screen Neg (NEG) Urine Cannabinoids Screen Neg (NEG) Urine Ethyl Alcohol Neg (NEG) Test 08/05/18 03:25 White Blood Count 13.5 x10^3/uL (4.0-11.0) Red Blood Count 4.71 x10^6/uL (4.30-5.70) Hemoglobin 13.5 g/dL (13.0-17.5) Hematocrit 40.7 % (39.0-53.0) Mean Corpuscular Volume 86 fL (79-100) Mean Corpuscular Hemoglobin 29 pg (25-35) Mean Corpuscular Hemoglobin Concent 33 g/dL (31-37) Red Cell Distribution Width 13.7 % (11.5-14.5) Platelet Count 263 x10^3/uL (140-400) Neutrophils (%) (Auto) 75 % (31-73) Lymphocytes (%) (Auto) 17 % (24-48) Monocytes (%) (Auto) 8 % (0-9) Eosinophils (%) (Auto) 1 % (0-3) Basophils (%) (Auto) 0 % (0-3) Neutrophils # (Auto) 10.0 x10^3uL (1.8-7.7) Lymphocytes # (Auto) 2.3 x10^3/uL (1.0-4.8) Monocytes # (Auto) 1.1 x10^3/uL (0.0-1.1) Eosinophils # (Auto) 0.1 x10^3/uL (0.0-0.7) Basophils # (Auto) 0.0 x10^3/uL (0.0-0.2) Sodium Level 145 mmol/L (136-145) Potassium Level 3.5 mmol/L (3.5-5.1) Chloride Level 107 mmol/L (98-107) Carbon Dioxide Level 27 mmol/L (21-32) Anion Gap 11 (6-14) Blood Urea Nitrogen 7 mg/dL (8-26) Creatinine 0.9 mg/dL (0.7-1.3) Estimated GFR (Cockcroft-Gault) 89.7 Glucose Level 102 mg/dL (70-99) Calcium Level 8.6 mg/dL (8.5-10.1) Review of Systems Review of Systems Out having OR Assessment and Plan Assessmemt and Plan Problems Medical Problems: (1) Abscess of right hand Status: Acute (2) IV drug user Status: Acute Comment Review of Relevant I have reviewed the following items teresa (where applicable) has been applied. Labs Laboratory Tests Test 08/04/18 11:50 08/04/18 12:35 08/04/18 16:05 08/04/18 17:00 Sodium Level 140 mmol/L (136-145) Potassium Level 3.7 mmol/L (3.5-5.1) Chloride Level 103 mmol/L (98-107) Carbon Dioxide Level 24 mmol/L (21-32) Anion Gap 13 (6-14) Blood Urea Nitrogen 5 mg/dL (8-26) Creatinine 0.7 mg/dL (0.7-1.3) Estimated GFR (Cockcroft-Gault) 119.9 BUN/Creatinine Ratio 7 (6-20) Glucose Level 129 mg/dL (70-99) Calcium Level 9.2 mg/dL (8.5-10.1) Total Bilirubin 0.7 mg/dL (0.2-1.0) Aspartate Amino Transf (AST/SGOT) 15 U/L (15-37) Alanine Aminotransferase (ALT/SGPT) 11 U/L (16-63) Alkaline Phosphatase 96 U/L (46-116) Total Protein 7.3 g/dL (6.4-8.2) Albumin 3.0 g/dL (3.4-5.0) 3.0 g/dL (3.4-5.0) Albumin/Globulin Ratio 0.7 (1.0-1.7) Procalcitonin < 0.10 ng/mL (0.00-0.10) White Blood Count 13.2 x10^3/uL (4.0-11.0) Red Blood Count 4.67 x10^6/uL (4.30-5.70) Hemoglobin 13.4 g/dL (13.0-17.5) Hematocrit 40.2 % (39.0-53.0) Mean Corpuscular Volume 86 fL (79-100) Mean Corpuscular Hemoglobin 29 pg (25-35) Mean Corpuscular Hemoglobin Concent 33 g/dL (31-37) Red Cell Distribution Width 13.9 % (11.5-14.5) Platelet Count 243 x10^3/uL (140-400) Neutrophils (%) (Auto) 86 % (31-73) Lymphocytes (%) (Auto) 8 % (24-48) Monocytes (%) (Auto) 5 % (0-9) Eosinophils (%) (Auto) 0 % (0-3) Basophils (%) (Auto) 1 % (0-3) Neutrophils # (Auto) 11.3 x10^3uL (1.8-7.7) Lymphocytes # (Auto) 1.1 x10^3/uL (1.0-4.8) Monocytes # (Auto) 0.7 x10^3/uL (0.0-1.1) Eosinophils # (Auto) 0.0 x10^3/uL (0.0-0.7) Basophils # (Auto) 0.1 x10^3/uL (0.0-0.2) Segmented Neutrophils % 88 % (35-66) Lymphocytes % 7 % (24-48) Monocytes % 5 % (0-10) Platelet Estimate Adequate (ADEQUATE) Lactic Acid Level 1.0 mmol/L (0.4-2.0) 0.9 mmol/L (0.4-2.0) HIV (1&2) Antibody Screen Nonreactive (Nonreactive) Urine Collection Type Void Urine Color Yellow Urine Clarity Clear Urine pH 6.0 Urine Specific [place] 1.025 Urine Protein Negative mg/dL (NEG-TRACE) Urine Glucose (UA) Negative mg/dL (NEG) Urine Ketones (Stick) Trace mg/dL (NEG) Urine Blood Negative (NEG) Urine Nitrite Negative (NEG) Urine Bilirubin Negative (NEG) Urine Urobilinogen Dipstick 0.2 mg/dL (0.2 mg/dL) Urine Leukocyte Esterase Negative (NEG) Urine RBC 0 /HPF (0-2) Urine WBC 5-10 /HPF (0-4) Urine Squamous Epithelial Cells Few /LPF Urine Bacteria Few /HPF (0-FEW) Urine Mucus Slight /LPF Urine Opiates Screen Pos (NEG) Urine Methadone Screen Neg (NEG) Urine Barbiturates Neg (NEG) Urine Phencyclidine Screen Neg (NEG) Urine Amphetamine/Methamphetamine Neg (NEG) Urine Benzodiazepines Screen Pos (NEG) Urine Cocaine Screen Neg (NEG) Urine Cannabinoids Screen Neg (NEG) Urine Ethyl Alcohol Neg (NEG) Test 08/05/18 03:25 White Blood Count 13.5 x10^3/uL (4.0-11.0) Red Blood Count 4.71 x10^6/uL (4.30-5.70) Hemoglobin 13.5 g/dL (13.0-17.5) Hematocrit 40.7 % (39.0-53.0) Mean Corpuscular Volume 86 fL (79-100) Mean Corpuscular Hemoglobin 29 pg (25-35) Mean Corpuscular Hemoglobin Concent 33 g/dL (31-37) Red Cell Distribution Width 13.7 % (11.5-14.5) Platelet Count 263 x10^3/uL (140-400) Neutrophils (%) (Auto) 75 % (31-73) Lymphocytes (%) (Auto) 17 % (24-48) Monocytes (%) (Auto) 8 % (0-9) Eosinophils (%) (Auto) 1 % (0-3) Basophils (%) (Auto) 0 % (0-3) Neutrophils # (Auto) 10.0 x10^3uL (1.8-7.7) Lymphocytes # (Auto) 2.3 x10^3/uL (1.0-4.8) Monocytes # (Auto) 1.1 x10^3/uL (0.0-1.1) Eosinophils # (Auto) 0.1 x10^3/uL (0.0-0.7) Basophils # (Auto) 0.0 x10^3/uL (0.0-0.2) Sodium Level 145 mmol/L (136-145) Potassium Level 3.5 mmol/L (3.5-5.1) Chloride Level 107 mmol/L (98-107) Carbon Dioxide Level 27 mmol/L (21-32) Anion Gap 11 (6-14) Blood Urea Nitrogen 7 mg/dL (8-26) Creatinine 0.9 mg/dL (0.7-1.3) Estimated GFR (Cockcroft-Gault) 89.7 Glucose Level 102 mg/dL (70-99) Calcium Level 8.6 mg/dL (8.5-10.1) Laboratory Tests Test 08/04/18 11:50 08/04/18 12:35 08/04/18 16:05 08/04/18 17:00 Sodium Level 140 mmol/L (136-145) Potassium Level 3.7 mmol/L (3.5-5.1) Chloride Level 103 mmol/L (98-107) Carbon Dioxide Level 24 mmol/L (21-32) Anion Gap 13 (6-14) Blood Urea Nitrogen 5 mg/dL (8-26) Creatinine 0.7 mg/dL (0.7-1.3) Estimated GFR (Cockcroft-Gault) 119.9 BUN/Creatinine Ratio 7 (6-20) Glucose Level 129 mg/dL (70-99) Calcium Level 9.2 mg/dL (8.5-10.1) Total Bilirubin 0.7 mg/dL (0.2-1.0) Aspartate Amino Transf (AST/SGOT) 15 U/L (15-37) Alanine Aminotransferase (ALT/SGPT) 11 U/L (16-63) Alkaline Phosphatase 96 U/L (46-116) Total Protein 7.3 g/dL (6.4-8.2) Albumin 3.0 g/dL (3.4-5.0) 3.0 g/dL (3.4-5.0) Albumin/Globulin Ratio 0.7 (1.0-1.7) Procalcitonin < 0.10 ng/mL (0.00-0.10) White Blood Count 13.2 x10^3/uL (4.0-11.0) Red Blood Count 4.67 x10^6/uL (4.30-5.70) Hemoglobin 13.4 g/dL (13.0-17.5) Hematocrit 40.2 % (39.0-53.0) Mean Corpuscular Volume 86 fL (79-100) Mean Corpuscular Hemoglobin 29 pg (25-35) Mean Corpuscular Hemoglobin Concent 33 g/dL (31-37) Red Cell Distribution Width 13.9 % (11.5-14.5) Platelet Count 243 x10^3/uL (140-400) Neutrophils (%) (Auto) 86 % (31-73) Lymphocytes (%) (Auto) 8 % (24-48) Monocytes (%) (Auto) 5 % (0-9) Eosinophils (%) (Auto) 0 % (0-3) Basophils (%) (Auto) 1 % (0-3) Neutrophils # (Auto) 11.3 x10^3uL (1.8-7.7) Lymphocytes # (Auto) 1.1 x10^3/uL (1.0-4.8) Monocytes # (Auto) 0.7 x10^3/uL (0.0-1.1) Eosinophils # (Auto) 0.0 x10^3/uL (0.0-0.7) Basophils # (Auto) 0.1 x10^3/uL (0.0-0.2) Segmented Neutrophils % 88 % (35-66) Lymphocytes % 7 % (24-48) Monocytes % 5 % (0-10) Platelet Estimate Adequate (ADEQUATE) Lactic Acid Level 1.0 mmol/L (0.4-2.0) 0.9 mmol/L (0.4-2.0) HIV (1&2) Antibody Screen Nonreactive (Nonreactive) Urine Collection Type Void Urine Color Yellow Urine Clarity Clear Urine pH 6.0 Urine Specific [place] 1.025 Urine Protein Negative mg/dL (NEG-TRACE) Urine Glucose (UA) Negative mg/dL (NEG) Urine Ketones (Stick) Trace mg/dL (NEG) Urine Blood Negative (NEG) Urine Nitrite Negative (NEG) Urine Bilirubin Negative (NEG) Urine Urobilinogen Dipstick 0.2 mg/dL (0.2 mg/dL) Urine Leukocyte Esterase Negative (NEG) Urine RBC 0 /HPF (0-2) Urine WBC 5-10 /HPF (0-4) Urine Squamous Epithelial Cells Few /LPF Urine Bacteria Few /HPF (0-FEW) Urine Mucus Slight /LPF Urine Opiates Screen Pos (NEG) Urine Methadone Screen Neg (NEG) Urine Barbiturates Neg (NEG) Urine Phencyclidine Screen Neg (NEG) Urine Amphetamine/Methamphetamine Neg (NEG) Urine Benzodiazepines Screen Pos (NEG) Urine Cocaine Screen Neg (NEG) Urine Cannabinoids Screen Neg (NEG) Urine Ethyl Alcohol Neg (NEG) Test 08/05/18 03:25 White Blood Count 13.5 x10^3/uL (4.0-11.0) Red Blood Count 4.71 x10^6/uL (4.30-5.70) Hemoglobin 13.5 g/dL (13.0-17.5) Hematocrit 40.7 % (39.0-53.0) Mean Corpuscular Volume 86 fL (79-100) Mean Corpuscular Hemoglobin 29 pg (25-35) Mean Corpuscular Hemoglobin Concent 33 g/dL (31-37) Red Cell Distribution Width 13.7 % (11.5-14.5) Platelet Count 263 x10^3/uL (140-400) Neutrophils (%) (Auto) 75 % (31-73) Lymphocytes (%) (Auto) 17 % (24-48) Monocytes (%) (Auto) 8 % (0-9) Eosinophils (%) (Auto) 1 % (0-3) Basophils (%) (Auto) 0 % (0-3) Neutrophils # (Auto) 10.0 x10^3uL (1.8-7.7) Lymphocytes # (Auto) 2.3 x10^3/uL (1.0-4.8) Monocytes # (Auto) 1.1 x10^3/uL (0.0-1.1) Eosinophils # (Auto) 0.1 x10^3/uL (0.0-0.7) Basophils # (Auto) 0.0 x10^3/uL (0.0-0.2) Sodium Level 145 mmol/L (136-145) Potassium Level 3.5 mmol/L (3.5-5.1) Chloride Level 107 mmol/L (98-107) Carbon Dioxide Level 27 mmol/L (21-32) Anion Gap 11 (6-14) Blood Urea Nitrogen 7 mg/dL (8-26) Creatinine 0.9 mg/dL (0.7-1.3) Estimated GFR (Cockcroft-Gault) 89.7 Glucose Level 102 mg/dL (70-99) Calcium Level 8.6 mg/dL (8.5-10.1) Medications Current Medications Sodium Chloride 1,000 ml @ 166.667 mls/hr Q6H IV Last administered on at 13:04; Start 08/04/18 at 12:04; Stop 08/04/18 at 23:55; Status DC Piperacillin Sod/ Tazobactam Sod 4.5 gm/Sodium Chloride 100 ml @ 200 mls/hr 1X ONCE IV Last administered on 08/04/18at 13:05; Start 08/04/18 at 12:15; Stop 08/04/18 at 12:44; Status DC Vancomycin HCl (Vanco Per Pharmacy) 1 each 1X ONCE MC ; Start 08/04/18 at 12:15 ; Stop 08/04/18 at 12:16; Status DC Diphtheria/ Tetanus/Acell Pertussis (Boostrix) 0.5 ml ONCE ONCE VAX IM Last administered on 08/04/18at 13:09; Start 08/04/18 at 12:15; Stop 08/04/18 at 12:16 ; Status DC Vancomycin HCl 2 gm/Sodium Chloride 500 ml @ 250 mls/hr 1X ONCE IV Last administered on 08/04/18at 13:39; Start 08/04/18 at 12:15; Stop 08/04/18 at 14:14 ; Status DC Ondansetron HCl (Zofran) 4 mg PRN Q8HRS PRN IV NAUSEA/VOMITING; Start 08/04/18 at 13:00; Stop 08/05/18 at 12:59 Morphine Sulfate (Morphine Sulfate) 4 mg PRN Q2HR PRN IV PAIN Last administered on 08/05/18at 08:19; Start 08/04/18 at 13:00; Stop 08/05/18 at 12:59 Sodium Chloride 1,000 ml @ 125 mls/hr 1X ONCE IV Last administered on at 13:40; Start 08/04/18 at 13:00; Stop 08/04/18 at 20:59; Status DC Morphine Sulfate (Morphine Sulfate) 4 mg STK-MED ONCE .ROUTE ; Start 08/04/18 at 13:07; Stop 08/04/18 at 13:08; Status DC Vancomycin HCl (Vanco Per Pharmacy) 1 each PRN DAILY PRN MC SEE COMMENTS Last administered on 08/04/18at 16:31; Start 08/04/18 at 16:00 Piperacillin Sod/ Tazobactam Sod 4.5 gm/Sodium Chloride 100 ml @ 200 mls/hr Q6HRS IV Last administered on 08/05/18at 06:21; Start 08/04/18 at 18:00 Sodium Chloride (Normal Saline Flush 3ml) 3 ml QSHIFT PRN IV AFTER MEDS AND BLOOD DRAWS; Start 08/04/18 at 16:15 Sodium Chloride 1,000 ml @ 100 mls/hr Q10H IV Last administered on 08/05/18at 07:24; Start 08/04/18 at 16:30 Ondansetron HCl (Zofran) 4 mg PRN Q4HRS PRN IV NAUSEA/VOMITING; Start 08/04/18 at 16:15 Zolpidem Tartrate (Ambien) 5 mg PRN QHS PRN PO INSOMNIA; Start 08/04/18 at 16: 15 Acetaminophen (Tylenol) 650 mg PRN Q4HRS PRN PO TEMP OVER 100.4F OR MILD PAIN; Start 08/04/18 at 16:15 Acetaminophen (Tylenol) 650 mg PRN Q4HRS PRN GT TEMP OVER 100.4F OR MILD PAIN; Start 08/04/18 at 16:15 Al Hydroxide/Mg Hydroxide (Mylanta Plus Xs) 30 ml PRN DAILY PRN PO HEARTBURN / GAS; Start 08/04/18 at 16:15 Clonidine HCl (Catapres) 0.1 mg PRN Q6HRS PRN PO SBP>160 OR DBP>90; Start 08/04 at 16:15 Sodium Monofluorophosphate (Fleet Adult) 133 ml PRN DAILY PRN IA CONSTIPATION; Start 08/04/18 at 16:15 Docusate Sodium (Colace) 100 mg PRN BID PRN PO CONSTIPATION; Start 08/04/18 at 16:15 Albuterol/ Ipratropium (Duoneb) 3 ml Q4HRS NEB Last administered on 08/04/18at 19:21; Start 08/04/18 at 20:00; Stop 08/04/18 at 22:37; Status DC Guaifenesin (Robitussin) 200 mg PRN Q4HRS PRN PO COUGH; Start 08/04/18 at 16:15 Lorazepam (Ativan) 0.5 mg PRN Q4HRS PRN PO ANXIETY / AGITATION; Start 08/04/18 at 16:15 Hydromorphone HCl (Dilaudid) 1 mg PRN Q2HRS PRN IV SEVERE PAIN; Start 08/04/18 at 16:15 Enoxaparin Sodium (Lovenox 40mg Syringe) 40 mg DAILY SQ ; Start 08/05/18 at 09: 00 Vancomycin HCl 1 gm/Sodium Chloride 250 ml @ 250 mls/hr Q8H IV Last administered on 08/05/18at 07:25; Start 08/04/18 at 22:00 Vancomycin HCl (Vancomycin Trough Level) 1 each 1X ONCE MC ; Start 08/05/18 at 13:30; Stop 08/05/18 at 13:31 Albuterol Sulfate (Ventolin Neb Soln) 2.5 mg PRN Q4HRS PRN NEB SHORTNESS OF BREATH; Start 08/04/18 at 22:45 Linezolid/Dextrose 300 ml @ 300 mls/hr Q12HR IV Last administered on at 09:02; Start 08/05/18 at 09:00 Ondansetron HCl (Zofran) 4 mg PRN Q6HRS PRN IV NAUSEA/VOMITING; Start 08/05/18 at 09:15; Stop 08/06/18 at 09:14 Morphine Sulfate (Morphine Sulfate) 1 mg PRN Q10MIN PRN IV SEVERE PAIN; Start 08/05/18 at 09:15; Stop 08/06/18 at 09:14 Ringer's Solution 1,000 ml @ 30 mls/hr Q24H IV ; Start 08/05/18 at 09:04; Stop 08/05/18 at 21:03 Hydromorphone HCl (Dilaudid) 0.5 mg PRN Q10MIN PRN IV SEV PAIN, Second choice; Start 08/05/18 at 09:15; Stop 08/06/18 at 09:14 Prochlorperazine Edisylate (Compazine) 5 mg PACU PRN PRN IV NAUSEA, MRX1; Start 08/05/18 at 09:15; Stop 08/06/18 at 09:14 Fentanyl Citrate (Fentanyl 2ml Vial) 100 mcg STK-MED ONCE .ROUTE ; Start at 10:28; Stop 08/05/18 at 10:29; Status DC Fentanyl Citrate (Fentanyl 2ml Vial) 50 mcg PRN Q5MIN PRN IV X 2 DOSES FOR PAIN Last administered on 08/05/18at 10:50; Start 08/05/18 at 10:30; Stop at 10:29 Propofol 20 ml @ As Directed STK-MED ONCE IV ; Start 08/05/18 at 10:46; Stop 05/14 at 10:47; Status DC Dexamethasone Sodium Phosphate (Decadron) 20 mg STK-MED ONCE .ROUTE ; Start 05/14 at 10:46; Stop 08/05/18 at 10:47; Status DC Famotidine (Pepcid Vial) 20 mg STK-MED ONCE .ROUTE ; Start 08/05/18 at 10:46; Stop 08/05/18 at 10:47; Status DC Ketorolac Tromethamine (Toradol For Or Only) 30 mg STK-MED ONCE INJ ; Start 05/14 at 10:46; Stop 08/05/18 at 10:47; Status DC Lidocaine HCl (Lidocaine Pf 2% Vial) 5 ml STK-MED ONCE .ROUTE ; Start 08/05/18 at 10:46; Stop 08/05/18 at 10:47; Status DC Ondansetron HCl (Zofran) 4 mg STK-MED ONCE .ROUTE ; Start 08/05/18 at 10:46; Stop 08/05/18 at 10:47; Status DC Midazolam HCl (Versed) 2 mg STK-MED ONCE .ROUTE ; Start 08/05/18 at 10:46; Stop 08/05/18 at 10:47; Status DC Active Scripts Active Orphenadrine Citrate 100 Mg Tablet.er 1 Tab PO BID Driving or alcohol intake while taking this medication Cyclobenzaprine Hcl 10 Mg Tablet 10 Mg PO TID Reported [brintellix] 10 10 Mg PO DAILY Lisinopril 30 Mg Tablet 30 Mg PO DAILY Lorazepam 2 Mg Tablet 3 Mg PO DAILY Temazepam 30 Mg Capsule 30 Mg PO HS PRN Vitals/I & O Vital Sign - Last 24 Hours 08/04/18 08/04/18 08/04/18 08/04/18 11:50 12:00 12:45 13:21 Temp 97.8 98.1 97.8 98.1 Pulse 103 96 74 85 Resp 20 18 18 B/P (MAP) 132/74 (93) 135/76 (95) 129/87 (101) 135/78 (97) Pulse Ox 95 98 99 98 O2 Delivery Room Air Room Air Room Air Room Air 08/04/18 08/04/18 08/04/18 08/04/18 15:00 15:18 16:05 17:35 Temp 98.0 98.0 Pulse 91 Resp 18 16 B/P (MAP) 131/85 (100) Pulse Ox 100 O2 Delivery Room Air Room Air Room Air Room Air 08/04/18 08/04/18 08/04/18 08/04/18 19:00 19:23 19:37 21:43 Temp 97.9 97.9 Pulse 105 Resp 18 20 20 B/P (MAP) 111/78 (89) Pulse Ox 95 97 O2 Delivery Room Air Room Air Room Air Room Air 08/04/18 08/04/18 08/05/18 08/05/18 23:00 23:45 01:37 03:00 Temp 98.9 98.2 98.9 98.2 Pulse 85 76 Resp 18 24 20 18 B/P (MAP) 123/70 (87) 132/72 (92) Pulse Ox 98 98 O2 Delivery Room Air Room Air Room Air Room Air 08/05/18 08/05/18 08/05/18 08/05/18 03:50 06:21 07:00 08:00 Temp 98.1 98.1 Pulse 85 Resp 20 20 16 B/P (MAP) 125/73 (90) Pulse Ox 97 O2 Delivery Room Air Room Air Room Air 08/05/18 08/05/18 08/05/18 08/05/18 08:19 08:53 09:19 10:50 Temp 99.2 99.2 Pulse 79 Resp 16 16 20 19 B/P (MAP) 146/90 Pulse Ox 98 98 O2 Delivery Room Air Room Air Room Air Room Air 08/05/18 11:10 Resp 20 Pulse Ox 98 O2 Delivery Room Air Intake and Output 08/04/18 08/04/18 08/05/18 14:59 22:59 06:59 Intake Total 420 ml Balance 420 ml MONI JENSEN MD Aug 05, 2018 11:27
[2018-08-05] MEDS ORDERED: KETAMINE HCL IN NACL, ISO-OSM 50 MG/5 ML SYRINGE ONE (12:00)
[2018-08-05] MEDS ORDERED: SEVOFLURANE 31 TO 60 MINUTES. IH ONE (12:58)
--- NOTE | 2018-08-05 13:23 | PDOC4 ---
Operative Note Operative Note Date of Procedure: August 05, 2018 Pre-Op Diagnosis: * Carbuncle of right hand L02.531 * Cutaneous abscess of right upper limb L02.413 Postoperative Diagnosis: * Carbuncle of right hand L02.531 * Cutaneous abscess of right upper limb L02.413 Procedures: * Right hand: Incision and drainage of abscess eg, carbuncle) complicated or multiple (CPT 76075) * Right wrist: Incision and drainage, forearm and/or wrist; deep abscess or hematoma (CPT 64216) Surgeon: Raymundo Jacobs MD Anesthesia: General EBL: 20 mL Specimens Obtained: Cultures, aerobic and anaerobic, plus Gram stain Complications: none Drains: none Findings: Large abscess/carbuncle on the ulnar dorsal aspect of the right hand. Abscess of the right distal forearm with open wound involving the extensor tendons on the ulnar aspect of the wrist and distal forearm. Indications for Procedure: The patient is a 47-year-old man who presented with several abscesses on the right forearm wrist and hand. He has a remote history of IV drug abuse but denies current use. 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 He has developed pain swelling and drainage from 3 separate areas on the hand and wrist. There is purulent drainage, tenderness and erythema. There is tissue loss creating an open wound at the most proximal of these, over the dorsum of the extensor carpi ulnaris as it approaches the wrist joint. The patient and I discussed the risks, benefits and alternatives of surgery. I recommended incision and drainage, deep cultures, and packing of the abscess cavities. We discussed the potential risks of ongoing infection, nerve injury, scarring, need for further surgery, neurovascular injury, or other potential surgical or anesthetic complications. Procedure in Detail: The patient was identified in the preoperative holding area. The correct extremity was marked by me. The patient was taken to the operating room where general anesthesia was used. The patient was positioned supine on the operating table. He remains on scheduled antibiotics. A timeout procedure was performed. A tourniquet was applied to the upper limb. The limb was prepared in sterile fashion with surgical prep solution. Sterile drapes were applied. A longitudinal incision was used incorporating the carbuncle on the dorsum of the right hand. Heavy purulent drainage was noted from the ulnar dorsal distal carbuncle (over the distal portion of the ring and small finger metacarpals). Cultures were taken. This is a fairly large abscess cavity, approximately 5 x 4 cm, which was broken up with digital dissection, and with hemostats. Excisional debridement of the nonviable abscess cavity including skin and subcutaneous tissue was performed with a rongeurs. The tendons seemed to be intact. The dorsal smaller carbuncle over the long finger metacarpal was incised, and debrided with hemostats and rongeurs. Excisional debridement was performed of skin and subcutaneous tissue. The most proximal abscess with the area of open wound was incised. Excisional debridement was performed with the rongeurs of the remaining abscess cavity, and there is a small area of exposed extensor carpi ulnaris tendon. Copious irrigation with saline was used in all of the abscess cavities. The tourniquet was released. Electrocautery was used for hemostasis. The abscess cavities were loosely reapproximated with 2-0 nylon interrupted suture. The abscess cavities were packed with inch iodoform packing, for later removal. Sterile dressings were applied including Xeroform, 4 x 4s, ABDs, soft roll and Jose wrap. Needle and sponge counts were correct. There were no apparent complications. RAYMUNDO JACOBS MD Aug 05, 2018 13:23
[2018-08-05] MEDS ORDERED: oxyCODONE/APAP 5/325 1 TAB TABLET PO PRN (13:30)
[2018-08-05] MEDS: oxyCODONE/APAP 5/325 1 TAB TABLET PO PRN ×2 (14:57→19:04)
[2018-08-05] MEDS: IBUPROFEN 200 MG TABLET. PO SCH ×2 (14:57→21:05)
[2018-08-05 15:00] VITALS: BP 134/79
--- NOTE | 2018-08-05 15:45 | NUR ---
SW following. Discussed with RN, pt had surgery today. RN advised pt has history of IV drug use but "quit a year ago". No need for PAT referral. SW will continue to follow and give self pay resources tomorrow (08/06/18).
[2018-08-05 15:47] LABS: VANC TR 9.3 mcg/mL (10.0-20.0)
[2018-08-05] MEDS: VANCOMYCIN PER PHARMACY MC PRN (16:05)
[2018-08-05 19:30] VITALS: BP 133/88
[2018-08-05] MEDS: LACTOBACILLUS RHAMNOSUS GG 1 CAPSULE. PO SCH (21:05)
[2018-08-05] MEDS: ALPRAZolam 1 MG TABLET PO PRN (21:05)
--- NOTE | 2018-08-05 23:57 | CONS ---
DATE OF CONSULTATION: 08/05/2018 LOCATION: Room 444. REQUESTING PHYSICIAN: for Dr. Jacobs. REASON FOR CONSULTATION: Infected right hand. 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 He states 4-5 days ago, he got a splinter to the posterior aspect of his right hand, which he "bit out." Does have a history of previous MRSA infections and abscesses in the past as he does have a history of IV drug abuse. He has not used, he states since 2018. Over the past several days, his right hand began to increase in size. He also developed an area on the lateral aspect of his right hand dorsal aspect. He is uncertain how that happened, but also another area further down closer to his wrist that he became more concerned, that he may have had a spider bite, although he has not seen any spiders recently. He presented to [facility] Emergency Room on the , had a white count of 13.2 with 88 segs. Procalcitonin was less than 0.1. He underwent a hand x-ray, had some mild soft tissue swelling, no acute bony abnormality was seen, old healed fracture. Chest x-ray had some bronchitis, atypical viral infection. He has been afebrile since his admission. He was placed on vancomycin and Zosyn. He is now scheduled to go to surgery, has been evaluated by orthopedist. Denies any fevers. He did have some chills. No sweats. No gross headaches, nausea, vomiting, shortness of air, rash, dysuria, frequency or urgency. PAST MEDICAL HISTORY: Positive for previous hand fracture, history of previous boils, history of MRSA, history of IV drug abuse, hypertension, anxiety, depression. PAST SURGICAL HISTORY: Positive for I and D of a boil of his foot. Otherwise, negative. REVIEW OF SYSTEMS: Otherwise negative. ALLERGIES: No known drug allergies. SOCIAL HISTORY: He is a smoker. No alcohol. Denies any substance abuse as of 09/2017. FAMILY HISTORY: Positive for diabetes, heart disease, kidney disease. CURRENT MEDICATIONS: Include vancomycin and Zosyn, which were started yesterday. He is on Tylenol, Catapres. He did get a DPT shot yesterday. He is on Colace, Lovenox, guaifenesin, Dilaudid, Ativan . Other meds are available and reviewed in the chart. PHYSICAL EXAMINATION: VITAL SIGNS: He has been afebrile, temperature of 92, respiratory rate 16, satting 90% on room air, pulse 76, blood pressure 132/72. CONSTITUTIONAL: He is alert, cooperative. He is in no acute distress. HEENT: Pupils are equal and reactive. Normal conjunctivae. Oral cavity, pharynx was clear. NECK: Supple. Good range of motion. LUNGS: Clear to auscultation bilaterally. HEART: S1, S2. ABDOMEN: Soft, nontender, nondistended with positive bowel sounds. EXTREMITIES: Without clubbing, cyanosis. His right hand has multiple abscesses, at least 3 on the dorsal aspect with the medial one draining some purulent material. There is redness associated with the erythema, but he is neurovascularly intact, can move all his digits and has good pulses in his wrist. SKIN: Otherwise without signs of the rash. He does have tattoos. NEUROLOGIC: He is nonfocal and appropriate. PSYCHIATRIC: Affect is appropriate. LABORATORY VALUES: White count today 13.5, hemoglobin 13.5, platelets of 263, segs were 75, lymphs were 17. Creatinine 0.9, glucose of 102. Normal liver function study test. HIV was negative. Urinalysis: Few bacteria, 5-10 wbc's, nitrite negative, leukocyte esterase negative. Radiology reviewed in history of present illness. IMPRESSION: 1. Right hand infection. 2. Leukocytosis. 3. History of methicillin-resistant Staphylococcus aureus. 4. History of IV drug abuse, which he reports last being in 09/2017. 5. Pyuria. RECOMMENDATIONS: For now, continue vancomycin and Zosyn. We will add Zyvox now for toxin shutdown, also place in contact isolation with his MRSA. Follow up labs, cultures. Suspect WBC to increase if gets dexamethasone prior to surgery. We will obtain a urine drug screen, actually the urine that is in the lab are ready, although he states he has not had any since 09/2017. This was discussed with lab. Await surgical findings. Thank you for allowing us to participate in the patient's care. Should you have any further questions, please do not hesitate to contact me. BUNNY CARDENAS MD DR: Jocelynn JOB#: [id number] / [id number]
[2018-08-05 23:58] VITALS: BP 133/78
[2018-08-06] MEDS: PIPERACILLIN/TAZOBACTAM 4.5 GM in IV NORMAL SALINE 100ML 100 ML IV SCH ×2 (00:07→05:31)
[2018-08-06] MEDS: VANCOMYCIN 1 GM in IV NORMAL SALINE 250ML 250 ML IV SCH ×2 (00:07→05:31)
[2018-08-06] MEDS: oxyCODONE/APAP 5/325 1 TAB TABLET PO PRN ×3 (00:07→09:43)
[2018-08-06] MEDS: ALPRAZolam 1 MG TABLET PO PRN ×2 (03:29→09:45)
[2018-08-06 03:47] VITALS: BP 130/74
[2018-08-06 07:00] VITALS: BP 136/89
--- NOTE | 2018-08-06 08:08 | PDOC ---
ORTHO PROGRESS NOTES Subjective The patient was up walking around the room and saying that he cannot stay in the hospital and spend $20k per day when he lives down the street and can come back for IV antibiotics. Post-op Day: 1 Procedure I&D of multiple abscesses right hand. Vitals Vital Signs Date Time Temp Pulse Resp B/P (MAP) Pulse Ox O2 Delivery O2 Flow Rate FiO2 08/06/18 06:30 99 Room Air 08/06/18 03:47 98.3 63 18 130/74 (92) 98.3 08/05/18 20:00 8 Labs Laboratory Tests Test 08/04/18 11:50 08/04/18 12:35 08/04/18 16:05 08/04/18 17:00 Sodium Level 140 mmol/L (136-145) Potassium Level 3.7 mmol/L (3.5-5.1) Chloride Level 103 mmol/L (98-107) Carbon Dioxide Level 24 mmol/L (21-32) Anion Gap 13 (6-14) Blood Urea Nitrogen 5 mg/dL (8-26) Creatinine 0.7 mg/dL (0.7-1.3) Estimated GFR (Cockcroft-Gault) 119.9 BUN/Creatinine Ratio 7 (6-20) Glucose Level 129 mg/dL (70-99) Calcium Level 9.2 mg/dL (8.5-10.1) Total Bilirubin 0.7 mg/dL (0.2-1.0) Aspartate Amino Transf (AST/SGOT) 15 U/L (15-37) Alanine Aminotransferase (ALT/SGPT) 11 U/L (16-63) Alkaline Phosphatase 96 U/L (46-116) Total Protein 7.3 g/dL (6.4-8.2) Albumin 3.0 g/dL (3.4-5.0) 3.0 g/dL (3.4-5.0) Albumin/Globulin Ratio 0.7 (1.0-1.7) Procalcitonin < 0.10 ng/mL (0.00-0.10) White Blood Count 13.2 x10^3/uL (4.0-11.0) Red Blood Count 4.67 x10^6/uL (4.30-5.70) Hemoglobin 13.4 g/dL (13.0-17.5) Hematocrit 40.2 % (39.0-53.0) Mean Corpuscular Volume 86 fL (79-100) Mean Corpuscular Hemoglobin 29 pg (25-35) Mean Corpuscular Hemoglobin Concent 33 g/dL (31-37) Red Cell Distribution Width 13.9 % (11.5-14.5) Platelet Count 243 x10^3/uL (140-400) Neutrophils (%) (Auto) 86 % (31-73) Lymphocytes (%) (Auto) 8 % (24-48) Monocytes (%) (Auto) 5 % (0-9) Eosinophils (%) (Auto) 0 % (0-3) Basophils (%) (Auto) 1 % (0-3) Neutrophils # (Auto) 11.3 x10^3uL (1.8-7.7) Lymphocytes # (Auto) 1.1 x10^3/uL (1.0-4.8) Monocytes # (Auto) 0.7 x10^3/uL (0.0-1.1) Eosinophils # (Auto) 0.0 x10^3/uL (0.0-0.7) Basophils # (Auto) 0.1 x10^3/uL (0.0-0.2) Segmented Neutrophils % 88 % (35-66) Lymphocytes % 7 % (24-48) Monocytes % 5 % (0-10) Platelet Estimate Adequate (ADEQUATE) Lactic Acid Level 1.0 mmol/L (0.4-2.0) 0.9 mmol/L (0.4-2.0) HIV (1&2) Antibody Screen Nonreactive (Nonreactive) Urine Collection Type Void Urine Color Yellow Urine Clarity Clear Urine pH 6.0 Urine Specific [place] 1.025 Urine Protein Negative mg/dL (NEG-TRACE) Urine Glucose (UA) Negative mg/dL (NEG) Urine Ketones (Stick) Trace mg/dL (NEG) Urine Blood Negative (NEG) Urine Nitrite Negative (NEG) Urine Bilirubin Negative (NEG) Urine Urobilinogen Dipstick 0.2 mg/dL (0.2 mg/dL) Urine Leukocyte Esterase Negative (NEG) Urine RBC 0 /HPF (0-2) Urine WBC 5-10 /HPF (0-4) Urine Squamous Epithelial Cells Few /LPF Urine Bacteria Few /HPF (0-FEW) Urine Mucus Slight /LPF Urine Opiates Screen Pos (NEG) Urine Methadone Screen Neg (NEG) Urine Barbiturates Neg (NEG) Urine Phencyclidine Screen Neg (NEG) Urine Amphetamine/Methamphetamine Neg (NEG) Urine Benzodiazepines Screen Pos (NEG) Urine Cocaine Screen Neg (NEG) Urine Cannabinoids Screen Neg (NEG) Urine Ethyl Alcohol Neg (NEG) Test 08/05/18 03:25 08/05/18 15:25 White Blood Count 13.5 x10^3/uL (4.0-11.0) Red Blood Count 4.71 x10^6/uL (4.30-5.70) Hemoglobin 13.5 g/dL (13.0-17.5) Hematocrit 40.7 % (39.0-53.0) Mean Corpuscular Volume 86 fL (79-100) Mean Corpuscular Hemoglobin 29 pg (25-35) Mean Corpuscular Hemoglobin Concent 33 g/dL (31-37) Red Cell Distribution Width 13.7 % (11.5-14.5) Platelet Count 263 x10^3/uL (140-400) Neutrophils (%) (Auto) 75 % (31-73) Lymphocytes (%) (Auto) 17 % (24-48) Monocytes (%) (Auto) 8 % (0-9) Eosinophils (%) (Auto) 1 % (0-3) Basophils (%) (Auto) 0 % (0-3) Neutrophils # (Auto) 10.0 x10^3uL (1.8-7.7) Lymphocytes # (Auto) 2.3 x10^3/uL (1.0-4.8) Monocytes # (Auto) 1.1 x10^3/uL (0.0-1.1) Eosinophils # (Auto) 0.1 x10^3/uL (0.0-0.7) Basophils # (Auto) 0.0 x10^3/uL (0.0-0.2) Sodium Level 145 mmol/L (136-145) Potassium Level 3.5 mmol/L (3.5-5.1) Chloride Level 107 mmol/L (98-107) Carbon Dioxide Level 27 mmol/L (21-32) Anion Gap 11 (6-14) Blood Urea Nitrogen 7 mg/dL (8-26) Creatinine 0.9 mg/dL (0.7-1.3) Estimated GFR (Cockcroft-Gault) 89.7 Glucose Level 102 mg/dL (70-99) Calcium Level 8.6 mg/dL (8.5-10.1) Vancomycin Level Trough 9.3 mcg/mL (10.0-20.0) Vancomycin Last Dose Date Unknown Vancomycin Last Dose Time Unknown Laboratory Tests Test 08/05/18 15:25 Vancomycin Level Trough 9.3 mcg/mL (10.0-20.0) Vancomycin Last Dose Date Unknown Vancomycin Last Dose Time Unknown Notes Patient seems very anxious about leaving hospital. Assessment and Plan POD# 1 S/P I&D Right hand abscesses moving fingers at this time on request and waving arm in the air. Motor and sensory intact distally dressing dry and intact Will ask casework specialist to come discuss the need for hospital stay and continued IV antibiotics. DAYAMI BUSBY APRN Aug 06, 2018 08:08
[2018-08-06] MEDS: IV NORMAL SALINE 1000ML BAG 1,000 ML IV SCH (08:30)
[2018-08-06] MEDS: ENOXAPARIN 40 MG/0.4 ML SYRINGE. SQ SCH (09:00)
--- NOTE | 2018-08-06 09:17 | PDOC ---
Infectious Disease Note Subjective Subjective pt is feeling much better, wants to go home ROS ROS no n/v/d/sob Vital Sign Vital Signs Vital Signs Date Time Temp Pulse Resp B/P (MAP) Pulse Ox O2 Delivery O2 Flow Rate FiO2 08/06/18 07:00 98.0 68 18 136/89 (105) 97 Room Air 98.0 08/05/18 20:00 8 Physical Exam PHYSICAL EXAM CONSTITUTIONAL: He is alert, cooperative. He is in no acute distress. HEENT: Pupils are equal and reactive. Normal conjunctivae. Oral cavity, pharynx was clear. NECK: Supple. Good range of motion. LUNGS: Clear to auscultation bilaterally. HEART: S1, S2. ABDOMEN: Soft, nontender, nondistended with positive bowel sounds. EXTREMITIES: Without clubbing, cyanosis. His right hand has multiple abscesses, at least 3 on the dorsal aspect with the medial one draining some purulent material. There is redness associated with the erythema, but he is neurovascularly intact, can move all his digits and has good pulses in his wrist. SKIN: Otherwise without signs of the rash. He does have tattoos. NEUROLOGIC: He is nonfocal and appropriate. PSYCHIATRIC: Affect is appropriate. Labs Lab Laboratory Tests Test 08/05/18 15:25 Vancomycin Level Trough 9.3 mcg/mL (10.0-20.0) Vancomycin Last Dose Date Unknown Vancomycin Last Dose Time Unknown Micro Microbiology 08/04/18 Blood Culture - Preliminary, Resulted NO GROWTH AFTER 1 DAY Objective Assessment 1. Right hand infection. 2. Leukocytosis. 3. History of methicillin-resistant Staphylococcus aureus. 4. History of IV drug abuse, which he reports last being in 09/2017. 5. Pyuria. Plan Plan of Care pt insists on going home, no culture available yet d/w dr Jacobs, he is ok will change to zyvox and cipro ok to d/c f/u with us if needed, call office for culture results FLACO JORDAN MD Aug 06, 2018 09:17
[2018-08-06 09:28] LABS: CREATININE 0.8 mg/dL (0.7-1.3); GFR 102.7
[2018-08-06] MEDS: IBUPROFEN 200 MG TABLET. PO SCH (09:41)
[2018-08-06] MEDS: LACTOBACILLUS RHAMNOSUS GG 1 CAPSULE. PO SCH (09:41)
[2018-08-06] MEDS ORDERED: CIPROFLOXACIN HCL 250 MG TABLET. PO SCH (10:00)
[2018-08-06] MEDS ORDERED: LINEZOLID 600 MG TABLET PO SCH (10:00)
--- NOTE | 2018-08-06 11:32 | NUR ---
ALEX following. Discussed with RN. Pt needing assistance with obtaining antibiotics at lower cost. ALEX met with pt who would like to have goodrx coupon for [facility] at the [facility]. ALEX contacted [facility] to determine if they have Zyvox and Cipro in stock. ALEX faxed pt facesheet, scripts and goodrx coupons to [facility] (ph: [phone], fax: [phone]). ALEX awaiting a call back to determine [facility] can honor the goodrx prices of $66.42 (Zyvox) and $14.12 (Cipro). RN notified. ALEX gave self pay resources to pt. Pt denied any further SW needs. ALEX will continue to follow.
--- NOTE | 2018-08-06 12:05 | PDOC3 ---
Discharge Summary Visit Information Date of Admission: Aug 04, 2018 Date of Discharge: Aug 06, 2018 Admitting Diagnosis Comment: Right hand cellulitis and abscess History of IV drug use last used 2017 Sepsis POA Final Diagnosis Problems Medical Problems: (1) Abscess of right hand Status: Acute (2) IV drug user Status: Acute Brief Hospital Course Allergies Allergies Coded Allergies Type Severity Reaction Last Updated Verified No Known Drug Allergies 11/26/13 No Vital Signs Vital Signs Date Time Temp Pulse Resp B/P (MAP) Pulse Ox O2 Delivery O2 Flow Rate FiO2 08/06/18 10:43 Room Air 08/06/18 07:00 98.0 68 18 136/89 (105) 97 98.0 08/05/18 20:00 8 Lab Results Laboratory Tests Test 08/04/18 12:35 08/04/18 16:05 08/04/18 17:00 08/05/18 03:25 White Blood Count 13.2 x10^3/uL (4.0-11.0) 13.5 x10^3/uL (4.0-11.0) Red Blood Count 4.67 x10^6/uL (4.30-5.70) 4.71 x10^6/uL (4.30-5.70) Hemoglobin 13.4 g/dL (13.0-17.5) 13.5 g/dL (13.0-17.5) Hematocrit 40.2 % (39.0-53.0) 40.7 % (39.0-53.0) Mean Corpuscular Volume 86 fL (79-100) 86 fL (79-100) Mean Corpuscular Hemoglobin 29 pg (25-35) 29 pg (25-35) Mean Corpuscular Hemoglobin Concent 33 g/dL (31-37) 33 g/dL (31-37) Red Cell Distribution Width 13.9 % (11.5-14.5) 13.7 % (11.5-14.5) Platelet Count 243 x10^3/uL (140-400) 263 x10^3/uL (140-400) Neutrophils (%) (Auto) 86 % (31-73) 75 % (31-73) Lymphocytes (%) (Auto) 8 % (24-48) 17 % (24-48) Monocytes (%) (Auto) 5 % (0-9) 8 % (0-9) Eosinophils (%) (Auto) 0 % (0-3) 1 % (0-3) Basophils (%) (Auto) 1 % (0-3) 0 % (0-3) Neutrophils # (Auto) 11.3 x10^3uL (1.8-7.7) 10.0 x10^3uL (1.8-7.7) Lymphocytes # (Auto) 1.1 x10^3/uL (1.0-4.8) 2.3 x10^3/uL (1.0-4.8) Monocytes # (Auto) 0.7 x10^3/uL (0.0-1.1) 1.1 x10^3/uL (0.0-1.1) Eosinophils # (Auto) 0.0 x10^3/uL (0.0-0.7) 0.1 x10^3/uL (0.0-0.7) Basophils # (Auto) 0.1 x10^3/uL (0.0-0.2) 0.0 x10^3/uL (0.0-0.2) Segmented Neutrophils % 88 % (35-66) Lymphocytes % 7 % (24-48) Monocytes % 5 % (0-10) Platelet Estimate Adequate (ADEQUATE) Lactic Acid Level 1.0 mmol/L (0.4-2.0) 0.9 mmol/L (0.4-2.0) Albumin 3.0 g/dL (3.4-5.0) HIV (1&2) Antibody Screen Nonreactive (Nonreactive) Urine Collection Type Void Urine Color Yellow Urine Clarity Clear Urine pH 6.0 Urine Specific [place] 1.025 Urine Protein Negative mg/dL (NEG-TRACE) Urine Glucose (UA) Negative mg/dL (NEG) Urine Ketones (Stick) Trace mg/dL (NEG) Urine Blood Negative (NEG) Urine Nitrite Negative (NEG) Urine Bilirubin Negative (NEG) Urine Urobilinogen Dipstick 0.2 mg/dL (0.2 mg/dL) Urine Leukocyte Esterase Negative (NEG) Urine RBC 0 /HPF (0-2) Urine WBC 5-10 /HPF (0-4) Urine Squamous Epithelial Cells Few /LPF Urine Bacteria Few /HPF (0-FEW) Urine Mucus Slight /LPF Urine Opiates Screen Pos (NEG) Urine Methadone Screen Neg (NEG) Urine Barbiturates Neg (NEG) Urine Phencyclidine Screen Neg (NEG) Urine Amphetamine/Methamphetamine Neg (NEG) Urine Benzodiazepines Screen Pos (NEG) Urine Cocaine Screen Neg (NEG) Urine Cannabinoids Screen Neg (NEG) Urine Ethyl Alcohol Neg (NEG) Sodium Level 145 mmol/L (136-145) Potassium Level 3.5 mmol/L (3.5-5.1) Chloride Level 107 mmol/L (98-107) Carbon Dioxide Level 27 mmol/L (21-32) Anion Gap 11 (6-14) Blood Urea Nitrogen 7 mg/dL (8-26) Creatinine 0.9 mg/dL (0.7-1.3) Estimated GFR (Cockcroft-Gault) 89.7 Glucose Level 102 mg/dL (70-99) Calcium Level 8.6 mg/dL (8.5-10.1) Test 08/05/18 15:25 08/06/18 09:00 Vancomycin Level Trough 9.3 mcg/mL (10.0-20.0) Vancomycin Last Dose Date Unknown Vancomycin Last Dose Time Unknown Creatinine 0.8 mg/dL (0.7-1.3) Estimated GFR (Cockcroft-Gault) 102.7 Laboratory Tests Test 08/05/18 15:25 08/06/18 09:00 Vancomycin Level Trough 9.3 mcg/mL (10.0-20.0) Vancomycin Last Dose Date Unknown Vancomycin Last Dose Time Unknown Creatinine 0.8 mg/dL (0.7-1.3) Estimated GFR (Cockcroft-Gault) 102.7 Brief Hospital Course Mr. Root is a 47 old white male who on chart was that he uses IV drug use. Admitted because of abscess right hand. Needed I and D by orthopedics. GPC on culture but identification is pending and he wants to go home. Cleared by orthopedics to go home. ID is okay discharged with Cipro and Zyvox. Involve social work job titles for Zyvox and that has been arranged. Oxycodone on chart DC time less than 30 minutes Conaults performed by ID, orthopedics Procedures performed IND of the right hand abscess IV drug use counseling cessation done less than 30 minutes 1-1 Discharge Information Condition at Discharge: Improved, Stable Disposition/Orders: D/C to Home Scheduled Cyclobenzaprine Hcl (Cyclobenzaprine Hcl) 10 Mg Tablet, 10 MG PO TID, #30 Prescribed by: NANCY BRYAN APRN on 01/05/17 1752 Lisinopril (Lisinopril) 30 Mg Tablet, 30 MG PO DAILY for FOR HYPERTENSION, #30 Ref 0 (Reported) Entered as Reported by: JAZMINE GALLOWAY on 11/26/132142 Lorazepam (Lorazepam) 2 Mg Tablet, 3 MG PO DAILY, (Reported) Entered as Reported by: JAZMINE GALLOWAY on 11/26/132142 Orphenadrine Citrate (Orphenadrine Citrate) 100 Mg Tablet.er, 1 TAB PO BID, #8 Ref 0 Driving or alcohol intake while taking this medication Prescribed by: LIBBY LOPEZ APRN on 05/20/18 1130 [brintellix] 10 , 10 MG PO DAILY, (Reported) Entered as Reported by: JAZMINE GALLOWAY on 11/26/132214 Scheduled PRN Temazepam (Temazepam) 30 Mg Capsule, 30 MG PO HS PRN for INSOMNIA, (Reported) Entered as Reported by: JAZMINE GALLOWAY on 11/26/132140 MONI JENSEN MD Aug 06, 2018 12:05
--- NOTE | 2018-08-06 12:30 | NUR ---
wound care spoke with POLLY Anaya and she stated she has already changed the dressing for today. wound care will f/u tomorrow if patient still inpatient, pt may discharge today.
--- NOTE | 2018-08-06 13:15 | PDOC3 ---
Discharge Summary Visit Information Date of Admission: Aug 04, 2018 Date of Discharge: Aug 06, 2018 Admitting Diagnosis Comment: Abscess right hand status post IND 08/05/18 Final Diagnosis Problems Medical Problems: (1) Abscess of right hand Status: Acute Status: Acute Brief Hospital Course Allergies Allergies Coded Allergies Type Severity Reaction Last Updated Verified No Known Drug Allergies 11/26/13 No Vital Signs Vital Signs Date Time Temp Pulse Resp B/P (MAP) Pulse Ox O2 Delivery O2 Flow Rate FiO2 08/06/18 10:43 Room Air 08/06/18 07:00 98.0 68 18 136/89 (105) 97 98.0 08/05/18 20:00 8 Lab Results Laboratory Tests Test 08/04/18 16:05 08/04/18 17:00 08/05/18 03:25 08/05/18 15:25 Lactic Acid Level 0.9 mmol/L (0.4-2.0) Albumin 3.0 g/dL (3.4-5.0) HIV (1&2) Antibody Screen Nonreactive (Nonreactive) Urine Collection Type Void Urine Color Yellow Urine Clarity Clear Urine pH 6.0 Urine Specific [place] 1.025 Urine Protein Negative mg/dL (NEG-TRACE) Urine Glucose (UA) Negative mg/dL (NEG) Urine Ketones (Stick) Trace mg/dL (NEG) Urine Blood Negative (NEG) Urine Nitrite Negative (NEG) Urine Bilirubin Negative (NEG) Urine Urobilinogen Dipstick 0.2 mg/dL (0.2 mg/dL) Urine Leukocyte Esterase Negative (NEG) Urine RBC 0 /HPF (0-2) Urine WBC 5-10 /HPF (0-4) Urine Squamous Epithelial Cells Few /LPF Urine Bacteria Few /HPF (0-FEW) Urine Mucus Slight /LPF Urine Opiates Screen Pos (NEG) Urine Methadone Screen Neg (NEG) Urine Barbiturates Neg (NEG) Urine Phencyclidine Screen Neg (NEG) Urine Amphetamine/Methamphetamine Neg (NEG) Urine Benzodiazepines Screen Pos (NEG) Urine Cocaine Screen Neg (NEG) Urine Cannabinoids Screen Neg (NEG) Urine Ethyl Alcohol Neg (NEG) White Blood Count 13.5 x10^3/uL (4.0-11.0) Red Blood Count 4.71 x10^6/uL (4.30-5.70) Hemoglobin 13.5 g/dL (13.0-17.5) Hematocrit 40.7 % (39.0-53.0) Mean Corpuscular Volume 86 fL (79-100) Mean Corpuscular Hemoglobin 29 pg (25-35) Mean Corpuscular Hemoglobin Concent 33 g/dL (31-37) Red Cell Distribution Width 13.7 % (11.5-14.5) Platelet Count 263 x10^3/uL (140-400) Neutrophils (%) (Auto) 75 % (31-73) Lymphocytes (%) (Auto) 17 % (24-48) Monocytes (%) (Auto) 8 % (0-9) Eosinophils (%) (Auto) 1 % (0-3) Basophils (%) (Auto) 0 % (0-3) Neutrophils # (Auto) 10.0 x10^3uL (1.8-7.7) Lymphocytes # (Auto) 2.3 x10^3/uL (1.0-4.8) Monocytes # (Auto) 1.1 x10^3/uL (0.0-1.1) Eosinophils # (Auto) 0.1 x10^3/uL (0.0-0.7) Basophils # (Auto) 0.0 x10^3/uL (0.0-0.2) Sodium Level 145 mmol/L (136-145) Potassium Level 3.5 mmol/L (3.5-5.1) Chloride Level 107 mmol/L (98-107) Carbon Dioxide Level 27 mmol/L (21-32) Anion Gap 11 (6-14) Blood Urea Nitrogen 7 mg/dL (8-26) Creatinine 0.9 mg/dL (0.7-1.3) Estimated GFR (Cockcroft-Gault) 89.7 Glucose Level 102 mg/dL (70-99) Calcium Level 8.6 mg/dL (8.5-10.1) Vancomycin Level Trough 9.3 mcg/mL (10.0-20.0) Vancomycin Last Dose Date Unknown Vancomycin Last Dose Time Unknown Test 08/06/18 09:00 Creatinine 0.8 mg/dL (0.7-1.3) Estimated GFR (Cockcroft-Gault) 102.7 Laboratory Tests Test 08/05/18 15:25 08/06/18 09:00 Vancomycin Level Trough 9.3 mcg/mL (10.0-20.0) Vancomycin Last Dose Date Unknown Vancomycin Last Dose Time Unknown Creatinine 0.8 mg/dL (0.7-1.3) Estimated GFR (Cockcroft-Gault) 102.7 Brief Hospital Course Mr. Root is a 47 old [sex] who presented with [ ] Mr. Root is a 47 old white male Admitted because of abscess right hand. Needed I and D by orthopedics. GPC on culture but identification is pending. Cleared by orthopedics to go home. ID is okay discharged with Cipro and Zyvox. Involve social science research assistant for Zyvox and that has been arranged. Oxycodone on chart DC time less than 30 minutes Consults performed by ID, orthopedics Procedures performed IND of the right hand abscess Discharge Information Condition at Discharge: Improved, Stable Disposition/Orders: D/C to Home Scheduled Cyclobenzaprine Hcl (Cyclobenzaprine Hcl) 10 Mg Tablet, 10 MG PO TID, #30 Prescribed by: NANCY BRYAN APRN on 01/05/17 1752 Lisinopril (Lisinopril) 30 Mg Tablet, 30 MG PO DAILY for FOR HYPERTENSION, #30 Ref 0 (Reported) Entered as Reported by: JAZMINE GALLOWAY on 11/26/132142 Lorazepam (Lorazepam) 2 Mg Tablet, 3 MG PO DAILY, (Reported) Entered as Reported by: JAZMINE GALLOWAY on 11/26/132142 Orphenadrine Citrate (Orphenadrine Citrate) 100 Mg Tablet.er, 1 TAB PO BID, #8 Ref 0 Driving or alcohol intake while taking this medication Prescribed by: LIBBY LOPEZ APRN on 05/20/18 1130 [brintellix] 10 , 10 MG PO DAILY, (Reported) Entered as Reported by: JAZMINE GALLOWAY on 11/26/13 2215 Scheduled PRN Temazepam (Temazepam) 30 Mg Capsule, 30 MG PO HS PRN for INSOMNIA, (Reported) Entered as Reported by: JAZMINE GALLOWAY on 11/26/132140 MONI JENSEN MD Aug 06, 2018 13:15
--- NOTE | 2018-08-06 13:26 | NUR ---
Pt was walked to the main entrance by staff. Pt was given instructions for wound care and dressing change. Pt received prescriptions for antibiotics and pain management. Pt verbalized understanding of wound care and prescriptions.
== END 2018-08-06 13:20 | disposition home or self-care (01) | DRG 854 ==
LOC: ER 11:19 → 4 NORTH 12:21
PROVIDERS: ADMIT Family Medicine; ATTEND Family Medicine
PROC: 0JBJ0ZZ Excision of Right Hand Subcutaneous Tissue and Fascia, Open Approach (ICD-10-PCS; principal; 2018-08-04)
PROC: 0JBG0ZZ Excision of Right Lower Arm Subcutaneous Tissue and Fascia, Open Approach (ICD-10-PCS; 2018-08-04)
PROC: 0JBG0ZZ Excision of Right Lower Arm Subcutaneous Tissue and Fascia, Open Approach (ICD-10-PCS; 2018-08-04)
DX: A41.9 Sepsis, unspecified organism (principal); L03.113 Cellulitis of right upper limb; N39.0 Urinary tract infection, site not specified; L02.413 Cutaneous abscess of right upper limb; L02.511 Cutaneous abscess of right hand; F19.90 Other psychoactive substance use, unspecified, uncomplicated; I10 Essential (primary) hypertension; F41.9 Anxiety disorder, unspecified; F32.9 Major depressive disorder, single episode, unspecified; F17.210 Nicotine dependence, cigarettes, uncomplicated; L02.531 Carbuncle of right hand; Z83.3 Family history of diabetes mellitus; Z86.14 Personal history of Methicillin resistant Staphylococcus aureus infection; Z79.899 Other long term (current) drug therapy; S51.801A Unspecified open wound of right forearm, initial encounter
CPT/HCPCS: 36415; 71045; 73130; 80048; 80053; 80202; 80307; 81001; 82040; 82565; 83605; 84145; 85007; 85025; 86703; 87040; 87071; 87075; 87086; 87186; 90471; 90715; 94640; 94760; 96365; A7015; J1100; J1885; J2001; J2020; J2250; J2270; J2405; J2543; J2704; J3010; J3370; J3490; J7030; J7040; J7050; J7120; J7620; 99285-25; A4461

== ENCOUNTER 2018-08-10 10:27 | Inpatient (IN) | payer SELFPAY ==
[~2018-08-10] VITALS: Ht 170.2 cm; Wt 80.7 kg
[2018-08-10] MEDS ORDERED: BISACODYL 10 MG SUPP.RECT. PR PRN (11:15)
[2018-08-10] MEDS ORDERED: MAGNESIUM HYDROXIDE 2,400 MG/30 ML ORAL.SUSP. PO PRN (11:15)
[2018-08-10] MEDS ORDERED: PROCHLORPERAZINE 10 MG/2 ML VIAL. IV PRN (11:15)
[2018-08-10] MEDS ORDERED: oxyCODONE IR 5 MG TABLET PO PRN (11:15)
[2018-08-10] MEDS ORDERED: VANCOMYCIN PER PHARMACY MC PRN (11:15)
[2018-08-10] MEDS ORDERED: ONDANSETRON PF 4 MG/2 ML VIAL. IV PRN (11:15)
[2018-08-10] MEDS ORDERED: ACETAMINOPHEN 325 MG TABLET. PO PRN (11:15)
[2018-08-10] MEDS ORDERED: MAG HYDROX/ALUMINUM HYD/SIMETH 30 ML ORAL.SUSP PO PRN (11:15)
[2018-08-10] MEDS ORDERED: PIP/TAZO PER PHARMACY MC PRN (11:15)
[2018-08-10] MEDS ORDERED: ZOLPIDEM 5 MG TABLET. PO PRN (11:15)
[2018-08-10] MEDS ORDERED: KETOROLAC 15 MG/ML VIAL. IV PRN (11:15)
[2018-08-10] MEDS ORDERED: hydrALAZINE 20 MG/ML VIAL. IVP PRN (11:30)
[2018-08-10] MEDS ORDERED: TEMAZEPAM 15 MG CAPSULE PO PRN (11:30)
[2018-08-10] MEDS ORDERED: PIPERACILLIN/TAZOBACTAM 3.375 GM in IV NORMAL SALINE 50ML 50 ML IV ONE (11:30)
[2018-08-10] MEDS ORDERED: VANCOMYCIN 2 GM in IV NORMAL SALINE 500ML BAG 500 ML IV ONE (12:00)
[2018-08-10] MEDS: PIPERACILLIN/TAZOBACTAM 3.375 GM in IV NORMAL SALINE 50ML 50 ML IV SCH ×3 (12:24→23:59)
--- NOTE | 2018-08-10 12:29 | PDOC1 ---
History and Physical Date of Admission Date of Admission DATE: 08/10/18 TIME: 12:24 Identification/Chief Complaint Chief Complaint Right hand pain swelling and "another abscess" Source Source: Caregiver, Chart review, Patient History of Present Illness History of Present Illness 47-year-old white male whom I just discharge few days ago after being here few days for right hand abscess needed IND by orthopedics and IV antibiotics. He was sent home nontoxic-appearing afebrile. He claims he filled his antibiotic prescription on dc. But now back again because of another seemingly fluctuance? 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 He did change a whole tire few days ago while having this right hand abscess some of which were left to heal by secondary intention (meaning not sutured close). HE tries to do the dressings at home or his 18 yo son sometimes helps him Denies fever at home. No white count here, blood pressure on the high side. Redness and pain and swelling of the hand appreciable. Orthopedics has been consulted and advised admission for IV antibiotics along with ID consult Past Medical History Cardiovascular: HTN Psych: Anxiety, Depression Renal/: No pertinent hx Past Surgical History Past Surgical History: Other (I and D rt hand 08/12) Family History Family History: Alcohol Abuse, Diabetes, Heart Disease Social History Smoke: No ALCOHOL: other Drugs: None Current Medications Current Medications Current Medications Sodium Chloride 1,000 ml @ 100 mls/hr Q10H IV ; Start 08/10/18 at 12:00 Ondansetron HCl (Zofran) 4 mg PRN Q6HRS PRN IV NAUSEA/VOMITING; Start 08/10/18 at 11:15 Prochlorperazine Edisylate (Compazine) 10 mg PRN Q6HRS PRN IV NAUSEA/VOMITING, 2nd CHOICE; Start 08/10/18 at 11:15 Al Hydroxide/Mg Hydroxide (Mylanta Plus Xs) 30 ml PRN Q3HRS PRN PO HEARTBURN / GAS; Start 08/10/18 at 11:15 Zolpidem Tartrate (Ambien) 5 mg PRN QHS PRN PO INSOMNIA, MAY REPEAT IN 1HR; Start 08/10/18 at 11:15 Oxycodone HCl (Roxicodone) 5 mg PRN Q3HRS PRN PO BREAKTHROUGH PAIN; Start 08/10 at 11:15 Morphine Sulfate (Morphine Sulfate) 2 mg PRN Q2HR PRN IV PAIN; Start 08/10/18 at 11:15 Ketorolac Tromethamine (Toradol 15mg Vial) 15 mg PRN Q6HRS PRN IV INFLAMMATION/ MILD PAIN; Start 08/10/18 at 11:15; Stop 08/15/18 at 11:14 Acetaminophen (Tylenol) 650 mg PRN Q6HRS PRN PO Headaches, Temp > 101.5F; Start 08/10/18 at 11:15 Magnesium Hydroxide (Milk Of Magnesia) 2,400 mg PRN Q12HR PRN PO CONSTIPATION; Start 08/10/18 at 11:15 Bisacodyl (Dulcolax Supp) 10 mg PRN DAILY PRN [place] CONSTIPATION; Start 08/10/18 at 11:15 Vancomycin HCl (Vanco Per Pharmacy) 1 each PRN DAILY PRN [facility] SEE COMMENTS; Start 08/10/18 at 11:15 Piperacillin Sod/ Tazobactam Sod (Zosyn Per Pharmacy) 1 each PRN DAILY PRN [facility] SEE COMMENTS; Start 08/10/18 at 11:15 Hydralazine HCl (Apresoline Inj) 10 mg PRN Q4HRS PRN IVP ELEVATED BP, SEE COMMENTS; Start 08/10/18 at 11:30 Cyclobenzaprine HCl (Flexeril) 10 mg TID PO ; Start 08/10/18 at 14:00 Temazepam (Restoril) 30 mg PRN QHS PRN PO INSOMNIA; Start 08/10/18 at 11:30 Lisinopril (Prinivil) 30 mg DAILY PO ; Start 08/11/18 at 09:00 Lorazepam (Ativan) 3 mg DAILY PO ; Start 08/11/18 at 09:00 Non-Formulary Medication (Orphenadrine Citrate ) 1 tab BID PO ; Start 08/10/18 at 21:00; Status UNV Non-Formulary Medication ([brintellix] ) 10 mg DAILY PO ; Start 08/11/18 at 09: 00; Status UNV Piperacillin Sod/ Tazobactam Sod 3.375 gm/Sodium Chloride 50 ml @ 100 mls/hr 1X ONCE IV ; Start 08/10/18 at 11:30; Stop 08/10/18 at 11:59; Status UNV Vancomycin HCl 2 gm/Sodium Chloride 500 ml @ 250 mls/hr 1X ONCE IV ; Start at 12:00; Stop 08/10/18 at 13:59 Piperacillin Sod/ Tazobactam Sod 3.375 gm/Sodium Chloride 50 ml @ 100 mls/hr Q6HRS IV ; Start 08/10/18 at 11:30 Active Scripts Active Orphenadrine Citrate 100 Mg Tablet.er 1 Tab PO BID Driving or alcohol intake while taking this medication Cyclobenzaprine Hcl 10 Mg Tablet 10 Mg PO TID Reported [brintellix] 10 10 Mg PO DAILY Lisinopril 30 Mg Tablet 30 Mg PO DAILY Lorazepam 2 Mg Tablet 3 Mg PO DAILY Temazepam 30 Mg Capsule 30 Mg PO HS PRN Allergies Allergies: Coded Allergies: No Known Drug Allergies (Unverified , 11/26/13) ROS Review of System As per history of present illness, the rest of ROS 14 point negative Physical Exam General: Alert, Oriented X3, Cooperative, No acute distress HEENT: Atraumatic, PERRLA, EOMI Lungs: Clear to auscultation, Normal air movement Heart: S1S2, RRR, no thrills, no rubs, no gallops, no murmurs Cardiovascular: S1, S2 Abdomen: Normal bowel sounds, Soft, No tenderness, No hepatosplenomegaly, No masses Male Genitals Exam: normal genitalia, normal prostate Rectal Exam: not examined PELVIC: Nml ext genitalia Extremities: Other (right hand he has 3 lesions. The most distal was a previous abscess some redness around the area swelling. PCM's about to that is a wound that was left to heal by secondary intention2 cashier assistant about to that is the new redness swelling around lesion maybe 1 cm in greatest diameter) Neuro: Normal gait, Normal speech, Strength at 5/5 X4 ext, Normal tone, Sensation intact, Cranial nerves 3-12 NL, Reflexes 2+ Psych/Mental Status: Mental status NL, Mood NL Vitals Vitals Vital Signs Date Time Temp Pulse Resp B/P (MAP) Pulse Ox O2 Delivery O2 Flow Rate FiO2 08/10/18 10:37 97.5 67 18 182/90 (120) 100 Room Air 97.5 VTE Prophylaxis Ordered VTE Prophylaxis Devices: Yes VTE Pharmacological Prophylaxi: Yes Assessment/Plan Assessment/Plan Right hand abscess cellulitis History of IV drug use-claims not anymore Sepsis POA Hypertension Borderline bradycardia Plan: VAnc and Zosyn per pharmacy Add a sedimentation rate Orthopedics reconsulted Consult ID Hydralazine when necessary for blood pressure-borderline bradycardia Home meds I have reconciled Nothing by mouth post midnight just in case I and D again MONI JENSEN MD Aug 10, 2018 12:29
--- NOTE | 2018-08-10 12:36 | PHYS DOC ---
Past Medical History Past Medical History: Anxiety, Depression, Hypertension Past Surgical History: Other Additional Past Surgical Histo: I&D ABSCESS R HAND/WRIST Additional Information: 1 PPD Alcohol Use: Sober Drug Use: None Adult General Chief Complaint Chief Complaint: ABSCESS HPI HPI Patient is a 47 year old male with history of IV drug use hypertension, depression who presents to the ED today to be evaluated for a new abscess to the right forearm noted this morning. Patient states he was seen in the ED a week ago, was admitted for an I&D the right hand which had multiple abscesses. He states this morning he woke up and he has a new abscess on the right forearm. He states he called the orthopedic doctor who requested him to come to the ED to be admitted for IV antibiotics and possible I&D. Patient states when he was discharged last week he did fill prescription for oral antibiotics and and has been taking the medication as prescribed. Patient denies any fever. Denies any recent IV drug use. 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 Review of Systems Review of Systems Constitutional: Denies fever or chills [] Eyes: Denies change in visual acuity, redness, or eye pain [] HENT: Denies nasal congestion or sore throat [] Respiratory: Denies cough or shortness of breath [] Cardiovascular: No additional information not addressed in HPI [] GI: Denies abdominal pain, nausea, vomiting, bloody stools or diarrhea [] : Denies dysuria or hematuria [] Musculoskeletal: Denies back pain or joint pain [] Integument: Right forearm abscess and cellulitis Neurologic: Denies headache, focal weakness or sensory changes [] All other systems were reviewed and found to be within normal limits, except as documented in this note. Allergies Allergies Allergies Coded Allergies Type Severity Reaction Last Updated Verified No Known Drug Allergies 11/26/13 No Physical Exam Physical Exam Constitutional: Well developed, well nourished, no acute distress, non-toxic appearance. [] HENT: Normocephalic, atraumatic, bilateral external ears normal, oropharynx moist, no oral exudates, nose normal. [] Eyes: PERRLA, EOMI, conjunctiva normal, no discharge. [] Neck: Normal range of motion, no tenderness, supple, no stridor. [] Cardiovascular:Heart rate regular rhythm, no murmur [] Lungs & Thorax: Bilateral breath sounds clear to auscultation [] Abdomen: Bowel sounds normal, soft, no tenderness, no masses, no pulsatile masses. [] Skin: Right dorsal hand with 3 open wounds from the previous I&D done last week with small drainage from some of the lesions. There is a new abscess noted on the right forearm slightly above the wrist approximately 1 x 1 cm, the area is erythematous, warm, tender to touch, slight fluctuance. Neurovascular exam is intact. Back: No tenderness, no CVA tenderness. [] Extremities: No tenderness, no cyanosis, no clubbing, ROM intact, no edema. [] Neurologic: Alert and oriented X 3, normal motor function, normal sensory function, no focal deficits noted. [] Psychologic: appears anxious. Current Patient Data Vital Signs Vital Signs Date Time Temp Pulse Resp B/P (MAP) Pulse Ox O2 Delivery O2 Flow Rate FiO2 08/10/18 10:37 97.5 67 18 182/90 (120) 100 Room Air 97.5 EKG EKG [] Radiology/Procedures Radiology/Procedures [] Course & Med Decision Making Course & Med Decision Making Pertinent Labs and Imaging studies reviewed. (See chart for details) This is a 47-year-old male patient presenting to the ED today with a new abscess formation on the right forearm. Patient had 3 abscesses drained from the right hand last week, was sent home on oral antibiotics. Orthopedic doctor requesting we admitted patient for IV antibiotics. Admitted under Dr.Termulo Dr. Jacobs in the Ed and he saw patient. Dragon Disclaimer Dragon Disclaimer This electronic medical record was generated, in whole or in part, using a voice recognition dictation system. Departure Departure Impression: Primary Impression: Abscess of right hand Additional Impressions: Cellulitis of right hand Abscess of right forearm Disposition: ADMITTED INPATIENT Condition: STABLE Referrals: CHIARA RICHARDSON (PCP) Problem Qualifiers AVINASH IBANEZ APRN Aug 10, 2018 12:36
[2018-08-10 12:45] VITALS: BP 168/105
[2018-08-10 12:52] LABS: BASO % 0 % (0-3); EOS # 0.1 x10^3/uL (0.0-0.7); EOS % 1 % (0-3); HEMOGLOBIN 14.1 g/dL (13.0-17.5); LYMPH # 1.6 x10^3/uL (1.0-4.8); LYMPH % 15 % (24-48); MEAN CORPUSCULAR HEMOGLOBIN 29 pg (25-35); MEAN CORPUSCULAR HGB CONC 34 g/dL (31-37); MEAN CORPUSCULAR VOLUME 86 fL (79-100); MONO # 0.5 x10^3/uL (0.0-1.1); MONO % 5 % (0-9); NEUT # 8.1 x10^3uL (1.8-7.7); NEUT % 79 % (31-73); PLATELET COUNT 293 x10^3/uL (140-400); RED BLOOD COUNT 4.89 x10^6/uL (4.30-5.70); WHITE BLOOD COUNT 10.3 x10^3/uL (4.0-11.0)
[2018-08-10 12:59] LABS: ALBUMIN 2.8 g/dL (3.4-5.0); ALBUMIN/GLOBULIN RATIO 0.7 (1.0-1.7); CALCIUM 8.7 mg/dL (8.5-10.1); GFR 79.4; TOTAL BILIRUBIN 0.2 mg/dL (0.2-1.0); TOTAL PROTEIN 6.6 g/dL (6.4-8.2)
[2018-08-10 13:01] LABS: POTASSIUM 3.1 mmol/L (3.5-5.1)
[2018-08-10] MEDS: IV 1/2 NORMAL SALINE 1,000 ML IV SCH (13:19)
--- NOTE | 2018-08-10 13:22 | PDOC2 ---
CONSULT Date of Consult Date of Consult DATE: 08/10/18 TIME: 13:17 Reason for Consult Reason for Consult: new abscess Identification/Chief Complaint Chief Complaint new abscess right arm Source Source: Chart review, Patient History of Present Illness Reason for Visit: 47-year-old man who was admitted to the hospital August 04 and had surgery August 05 for multiple hand abscesses, and a wrist/forearm abscess. We advised him to stay in the hospital on IV antibiotics, but he strongly requested to go home on oral antibiotics. This was not advised but was allowed and felt better than letting him leave AMA without antibiotics. He has been home on 2 antibiotics including Zosyn. Last night and this morning he developed new redness and swelling proximal to the prior area of incision and drainage on the right wrist. It is fluctuant. He said he does not feel well Past Medical History Cardiovascular: HTN Psych: Anxiety, Depression Renal/: No pertinent hx Past Surgical History Past Surgical History Right hand and wrist incision and drainage multiple abscesses 08/05/18 Past Surgical History: Other (I and D rt hand 08/12) Family History Family History: Alcohol Abuse, Diabetes, Heart Disease Social History No ALCOHOL: other Drugs: None Lives: with Family Current Problem List Problem List Problems Medical Problems: (1) Abscess of right forearm Status: Acute (2) Abscess of right hand Status: Acute Current Medications Current Medications Current Medications Sodium Chloride 1,000 ml @ 100 mls/hr Q10H IV ; Start 08/10/18 at 12:00 Ondansetron HCl (Zofran) 4 mg PRN Q6HRS PRN IV NAUSEA/VOMITING; Start 08/10/18 at 11:15 Prochlorperazine Edisylate (Compazine) 10 mg PRN Q6HRS PRN IV NAUSEA/VOMITING, 2nd CHOICE; Start 08/10/18 at 11:15 Al Hydroxide/Mg Hydroxide (Mylanta Plus Xs) 30 ml PRN Q3HRS PRN PO HEARTBURN / GAS; Start 08/10/18 at 11:15 Zolpidem Tartrate (Ambien) 5 mg PRN QHS PRN PO INSOMNIA, MAY REPEAT IN 1HR; Start 08/10/18 at 11:15 Oxycodone HCl (Roxicodone) 5 mg PRN Q3HRS PRN PO BREAKTHROUGH PAIN; Start 08/10 at 11:15 Morphine Sulfate (Morphine Sulfate) 2 mg PRN Q2HR PRN IV PAIN; Start 08/10/18 at 11:15 Ketorolac Tromethamine (Toradol 15mg Vial) 15 mg PRN Q6HRS PRN IV INFLAMMATION/ MILD PAIN; Start 08/10/18 at 11:15; Stop 08/15/18 at 11:14 Acetaminophen (Tylenol) 650 mg PRN Q6HRS PRN PO Headaches, Temp > 101.5F; Start 08/10/18 at 11:15 Magnesium Hydroxide (Milk Of Magnesia) 2,400 mg PRN Q12HR PRN PO CONSTIPATION; Start 08/10/18 at 11:15 Bisacodyl (Dulcolax Supp) 10 mg PRN DAILY PRN [place] CONSTIPATION; Start 08/10/18 at 11:15 Vancomycin HCl (Vanco Per Pharmacy) 1 each PRN DAILY PRN [facility] SEE COMMENTS; Start 08/10/18 at 11:15 Piperacillin Sod/ Tazobactam Sod (Zosyn Per Pharmacy) 1 each PRN DAILY PRN [facility] SEE COMMENTS; Start 08/10/18 at 11:15 Hydralazine HCl (Apresoline Inj) 10 mg PRN Q4HRS PRN IVP ELEVATED BP, SEE COMMENTS; Start 08/10/18 at 11:30 Cyclobenzaprine HCl (Flexeril) 10 mg TID PO ; Start 08/10/18 at 14:00 Temazepam (Restoril) 30 mg PRN QHS PRN PO INSOMNIA; Start 08/10/18 at 11:30 Lisinopril (Prinivil) 30 mg DAILY PO ; Start 08/11/18 at 09:00 Lorazepam (Ativan) 3 mg DAILY PO ; Start 08/11/18 at 09:00 Non-Formulary Medication (Orphenadrine Citrate ) 1 tab BID PO ; Start 08/10/18 at 21:00; Status UNV Non-Formulary Medication ([brintellix] ) 10 mg DAILY PO ; Start 08/11/18 at 09: 00; Status UNV Piperacillin Sod/ Tazobactam Sod 3.375 gm/Sodium Chloride 50 ml @ 100 mls/hr 1X ONCE IV ; Start 08/10/18 at 11:30; Stop 08/10/18 at 11:59; Status UNV Vancomycin HCl 2 gm/Sodium Chloride 500 ml @ 250 mls/hr 1X ONCE IV ; Start at 12:00; Stop 08/10/18 at 13:59 Piperacillin Sod/ Tazobactam Sod 3.375 gm/Sodium Chloride 50 ml @ 100 mls/hr Q6HRS IV Last administered on 08/10/18at 12:24; Start 08/10/18 at 11:30 Active Scripts Active Orphenadrine Citrate 100 Mg Tablet.er 1 Tab PO BID Driving or alcohol intake while taking this medication Cyclobenzaprine Hcl 10 Mg Tablet 10 Mg PO TID Reported [brintellix] 10 10 Mg PO DAILY Lisinopril 30 Mg Tablet 30 Mg PO DAILY Lorazepam 2 Mg Tablet 3 Mg PO DAILY Temazepam 30 Mg Capsule 30 Mg PO HS PRN Allergies Allergies: Coded Allergies: No Known Drug Allergies (Unverified , 11/26/13) Physical Exam General: Alert, Cooperative HEENT: Atraumatic Extremities: No cyanosis, No edema, Normal pulses, Other (there is a 2 x 2 centimeter erythematous tender area on the right forearm, about 5 cm proximal to the prior abscess at the wrist extension crease) Neuro: Normal speech, Sensation intact Psych/Mental Status: Mood NL Vitals VITALS Vital Signs Date Time Temp Pulse Resp B/P (MAP) Pulse Ox O2 Delivery O2 Flow Rate FiO2 08/10/18 12:45 97.8 69 18 168/105 (126) 96 Room Air 97.8 Labs Labs Laboratory Tests Test 08/10/18 12:26 White Blood Count 10.3 x10^3/uL (4.0-11.0) Red Blood Count 4.89 x10^6/uL (4.30-5.70) Hemoglobin 14.1 g/dL (13.0-17.5) Hematocrit 42.0 % (39.0-53.0) Mean Corpuscular Volume 86 fL (79-100) Mean Corpuscular Hemoglobin 29 pg (25-35) Mean Corpuscular Hemoglobin Concent 34 g/dL (31-37) Red Cell Distribution Width 14.0 % (11.5-14.5) Platelet Count 293 x10^3/uL (140-400) Neutrophils (%) (Auto) 79 % (31-73) Lymphocytes (%) (Auto) 15 % (24-48) Monocytes (%) (Auto) 5 % (0-9) Eosinophils (%) (Auto) 1 % (0-3) Basophils (%) (Auto) 0 % (0-3) Neutrophils # (Auto) 8.1 x10^3uL (1.8-7.7) Lymphocytes # (Auto) 1.6 x10^3/uL (1.0-4.8) Monocytes # (Auto) 0.5 x10^3/uL (0.0-1.1) Eosinophils # (Auto) 0.1 x10^3/uL (0.0-0.7) Basophils # (Auto) 0.0 x10^3/uL (0.0-0.2) Sodium Level 146 mmol/L (136-145) Potassium Level 3.1 mmol/L (3.5-5.1) Chloride Level 107 mmol/L (98-107) Carbon Dioxide Level 28 mmol/L (21-32) Anion Gap 11 (6-14) Blood Urea Nitrogen 5 mg/dL (8-26) Creatinine 1.0 mg/dL (0.7-1.3) Estimated GFR (Cockcroft-Gault) 79.4 BUN/Creatinine Ratio 5 (6-20) Glucose Level 116 mg/dL (70-99) Calcium Level 8.7 mg/dL (8.5-10.1) Total Bilirubin 0.2 mg/dL (0.2-1.0) Aspartate Amino Transf (AST/SGOT) 12 U/L (15-37) Alanine Aminotransferase (ALT/SGPT) 14 U/L (16-63) Alkaline Phosphatase 72 U/L (46-116) C-Reactive Protein, Quantitative 15.0 mg/L (0-3.3) Total Protein 6.6 g/dL (6.4-8.2) Albumin 2.8 g/dL (3.4-5.0) Albumin/Globulin Ratio 0.7 (1.0-1.7) Laboratory Tests Test 08/10/18 12:26 White Blood Count 10.3 x10^3/uL (4.0-11.0) Red Blood Count 4.89 x10^6/uL (4.30-5.70) Hemoglobin 14.1 g/dL (13.0-17.5) Hematocrit 42.0 % (39.0-53.0) Mean Corpuscular Volume 86 fL (79-100) Mean Corpuscular Hemoglobin 29 pg (25-35) Mean Corpuscular Hemoglobin Concent 34 g/dL (31-37) Red Cell Distribution Width 14.0 % (11.5-14.5) Platelet Count 293 x10^3/uL (140-400) Neutrophils (%) (Auto) 79 % (31-73) Lymphocytes (%) (Auto) 15 % (24-48) Monocytes (%) (Auto) 5 % (0-9) Eosinophils (%) (Auto) 1 % (0-3) Basophils (%) (Auto) 0 % (0-3) Neutrophils # (Auto) 8.1 x10^3uL (1.8-7.7) Lymphocytes # (Auto) 1.6 x10^3/uL (1.0-4.8) Monocytes # (Auto) 0.5 x10^3/uL (0.0-1.1) Eosinophils # (Auto) 0.1 x10^3/uL (0.0-0.7) Basophils # (Auto) 0.0 x10^3/uL (0.0-0.2) Sodium Level 146 mmol/L (136-145) Potassium Level 3.1 mmol/L (3.5-5.1) Chloride Level 107 mmol/L (98-107) Carbon Dioxide Level 28 mmol/L (21-32) Anion Gap 11 (6-14) Blood Urea Nitrogen 5 mg/dL (8-26) Creatinine 1.0 mg/dL (0.7-1.3) Estimated GFR (Cockcroft-Gault) 79.4 BUN/Creatinine Ratio 5 (6-20) Glucose Level 116 mg/dL (70-99) Calcium Level 8.7 mg/dL (8.5-10.1) Total Bilirubin 0.2 mg/dL (0.2-1.0) Aspartate Amino Transf (AST/SGOT) 12 U/L (15-37) Alanine Aminotransferase (ALT/SGPT) 14 U/L (16-63) Alkaline Phosphatase 72 U/L (46-116) C-Reactive Protein, Quantitative 15.0 mg/L (0-3.3) Total Protein 6.6 g/dL (6.4-8.2) Albumin 2.8 g/dL (3.4-5.0) Albumin/Globulin Ratio 0.7 (1.0-1.7) Assessment/Plan Assessment/Plan Infection right forearm. I reviewed his prior cultures and these were staph aureus. I recommend IV antibiotics, and recheck the area of redness and swelling tomorrow. Consider surgery tomorrow with incision and drainage, if antibiotics do not cause it to resolve. RAYMUNDO LINARES MD Aug 10, 2018 13:22
[2018-08-10] MEDS: MORPHINE SULFATE 2 MG/ML VIAL. IV PRN ×3 (13:26→21:49)
[2018-08-10] MEDS: CYCLOBENZAPRINE 10 MG TABLET. PO SCH ×2 (13:26→21:49)
--- NOTE | 2018-08-10 14:21 | NUR ---
Pharmacy Vancomycin Dosing Note S: Consulted to monitor and dose vancomycin started 08/10/18. O: ROBERT SHULTZ is a 47 year old M with Abscess, Cellulitis. Other Antibiotics: ZOSYN LABS: Last BUN: 5 Last Creatinine: 1.0 Creatinine Clearance: 91 mL/min Last WBC: 10.3 Last Procalcitonin: Tmax (past 24 hours): AFEBRILE Vancomycin Dosing: Dosing Weight: Actual Target Trough: 10-20 A: Based on: Previous admit (08/06/18) 1gm IV q8hrs gave Tr=9.3 this admit, slight decrease in renal function. P: 1. Begin Vancomycin 2000mg LOAD dose, then 1000 mg IV q8h 2. Follow up Trough level on 08/11/18 at 1230 3. Pharmacy will continue to monitor, follow and adjust therapy as needed. BRIDGER ZAPATA [facility], 08/10/18 [id number]
[2018-08-10 15:00] VITALS: BP 174/79
--- NOTE | 2018-08-10 15:00 | NUR ---
Pt arrived to unit by w/c, from ED, report received from POLLY Green. Admission Dx R hand and wrist abscesses s/p I&D and new, not open abscess on RFA. Pt A&O x4, not considered at risk for falls. No family present on admission. Allergies verified, bed in low position, call light in reach. Two open wounds s/p I&D on R hand and wrist and one new abscess on R forearm all photographed and measured. Packing pulled from right hand, unable to measure tunneling further than 3.5 cm in because Pt asked this nurse to stop. Pt also declined for wound to be packed or dressed and stated he preferred to have wounds open to air.
[2018-08-10] MEDS: NICOTINE 21MG PATCH. TD SCH (15:09)
[2018-08-10] MEDS: ALPRAZolam 1 MG TABLET PO PRN (18:43)
[2018-08-10 19:00] VITALS: BP_SYST 155; BP_SYST 172; BP_DIAS 113; BP_DIAS 88
[2018-08-10] MEDS ORDERED: VANCOMYCIN 1.25 GM in IV NORMAL SALINE 250ML 250 ML IV SCH (21:00)
[2018-08-10] MEDS: ORPHENADRINE CITRATE PO SCH (21:00)
[2018-08-10] MEDS: VANCOMYCIN 1 GM in IV NORMAL SALINE 250ML 250 ML IV SCH (21:48)
[2018-08-10 23:00] VITALS: BP 148/92
[2018-08-11] MEDS: IV 1/2 NORMAL SALINE 1,000 ML IV SCH ×2 (00:33→08:00)
[2018-08-11 03:00] VITALS: BP 147/91
[2018-08-11] MEDS: MORPHINE SULFATE 2 MG/ML VIAL. IV PRN (03:38)
[2018-08-11] MEDS: VANCOMYCIN 1 GM in IV NORMAL SALINE 250ML 250 ML IV SCH (05:09)
[2018-08-11] MEDS: PIPERACILLIN/TAZOBACTAM 3.375 GM in IV NORMAL SALINE 50ML 50 ML IV SCH (06:54)
[2018-08-11 07:00] VITALS: BP 159/101
[2018-08-11] MEDS: ORPHENADRINE CITRATE PO SCH (07:16)
[2018-08-11 08:33] VITALS: BP 159/101
[2018-08-11] MEDS: CYCLOBENZAPRINE 10 MG TABLET. PO SCH (08:33)
[2018-08-11] MEDS: NICOTINE 21MG PATCH. TD SCH (08:33)
[2018-08-11] MEDS: ALPRAZolam 1 MG TABLET PO PRN (08:35)
--- NOTE | 2018-08-11 08:58 | PDOC ---
Infectious Disease Note Subjective Subjective pt is back sec to a new lesion, but now says it is better and wants to go home ROS ROS no n/v/d/ Vital Sign Vital Signs Vital Signs Date Time Temp Pulse Resp B/P (MAP) Pulse Ox O2 Delivery O2 Flow Rate FiO2 08/11/18 08:33 66 159/101 08/11/18 07:45 Room Air 08/11/18 07:00 97.2 16 96 97.2 Physical Exam PHYSICAL EXAM CONSTITUTIONAL: He is alert, cooperative. He is in no acute distress. HEENT: Pupils are equal and reactive. Normal conjunctivae. Oral cavity, pharynx was clear. NECK: Supple. Good range of motion. LUNGS: Clear to auscultation bilaterally. HEART: S1, S2. ABDOMEN: Soft, nontender, nondistended with positive bowel sounds. EXTREMITIES: Without clubbing, cyanosis. His right hand has multiple abscesses, at least 3 on the dorsal aspect with the medial one draining some purulent material. There is redness associated with the erythema, but he is neurovascularly intact, can move all his digits and has good pulses in his wrist. SKIN: Otherwise without signs of the rash. He does have tattoos. NEUROLOGIC: He is nonfocal and appropriate. PSYCHIATRIC: Affect is appropriat Labs Lab Laboratory Tests Test 08/10/18 12:26 White Blood Count 10.3 x10^3/uL (4.0-11.0) Red Blood Count 4.89 x10^6/uL (4.30-5.70) Hemoglobin 14.1 g/dL (13.0-17.5) Hematocrit 42.0 % (39.0-53.0) Mean Corpuscular Volume 86 fL (79-100) Mean Corpuscular Hemoglobin 29 pg (25-35) Mean Corpuscular Hemoglobin Concent 34 g/dL (31-37) Red Cell Distribution Width 14.0 % (11.5-14.5) Platelet Count 293 x10^3/uL (140-400) Neutrophils (%) (Auto) 79 % (31-73) Lymphocytes (%) (Auto) 15 % (24-48) Monocytes (%) (Auto) 5 % (0-9) Eosinophils (%) (Auto) 1 % (0-3) Basophils (%) (Auto) 0 % (0-3) Neutrophils # (Auto) 8.1 x10^3uL (1.8-7.7) Lymphocytes # (Auto) 1.6 x10^3/uL (1.0-4.8) Monocytes # (Auto) 0.5 x10^3/uL (0.0-1.1) Eosinophils # (Auto) 0.1 x10^3/uL (0.0-0.7) Basophils # (Auto) 0.0 x10^3/uL (0.0-0.2) Erythrocyte Sedimentation Rate 19 (0-15) Sodium Level 146 mmol/L (136-145) Potassium Level 3.1 mmol/L (3.5-5.1) Chloride Level 107 mmol/L (98-107) Carbon Dioxide Level 28 mmol/L (21-32) Anion Gap 11 (6-14) Blood Urea Nitrogen 5 mg/dL (8-26) Creatinine 1.0 mg/dL (0.7-1.3) Estimated GFR (Cockcroft-Gault) 79.4 BUN/Creatinine Ratio 5 (6-20) Glucose Level 116 mg/dL (70-99) Calcium Level 8.7 mg/dL (8.5-10.1) Total Bilirubin 0.2 mg/dL (0.2-1.0) Aspartate Amino Transf (AST/SGOT) 12 U/L (15-37) Alanine Aminotransferase (ALT/SGPT) 14 U/L (16-63) Alkaline Phosphatase 72 U/L (46-116) C-Reactive Protein, Quantitative 15.0 mg/L (0-3.3) Total Protein 6.6 g/dL (6.4-8.2) Albumin 2.8 g/dL (3.4-5.0) Albumin/Globulin Ratio 0.7 (1.0-1.7) Objective Assessment 1. Right hand infection. 2. Leukocytosis. 3. History of methicillin-resistant Staphylococcus aureus. 4. History of IV drug abuse, which he reports last being in 09/2017. 5. Pyuria. Plan Plan of Care pt can be d/c ed on po keflex FLACO JORDAN MD Aug 11, 2018 08:58
[2018-08-11] MEDS ORDERED: LORazepam 1 MG TABLET PO SCH (09:00)
[2018-08-11] MEDS ORDERED: LISINOPRIL 10 MG TABLET PO SCH (09:00)
[2018-08-11] MEDS ORDERED: BRINTELLIX 10 MG PO SCH (09:00)
[2018-08-11 09:49] LABS: BASO % 1 % (0-3); EOS # 0.2 x10^3/uL (0.0-0.7); EOS % 2 % (0-3); HEMATOCRIT 39.2 % (39.0-53.0); HEMOGLOBIN 13.2 g/dL (13.0-17.5); LYMPH # 1.6 x10^3/uL (1.0-4.8); LYMPH % 17 % (24-48); MEAN CORPUSCULAR HEMOGLOBIN 29 pg (25-35); MEAN CORPUSCULAR HGB CONC 34 g/dL (31-37); MEAN CORPUSCULAR VOLUME 86 fL (79-100); MONO # 0.6 x10^3/uL (0.0-1.1); MONO % 7 % (0-9); NEUT # 6.8 x10^3uL (1.8-7.7); NEUT % 74 % (31-73); PLATELET COUNT 276 x10^3/uL (140-400); RED BLOOD COUNT 4.55 x10^6/uL (4.30-5.70); RED CELL DISTRIBUTION WIDTH 13.6 % (11.5-14.5); WHITE BLOOD COUNT 9.2 x10^3/uL (4.0-11.0)
[2018-08-11] MEDS ORDERED: CEPHALEXIN 250 MG CAPSULE. PO SCH (10:00)
[2018-08-11 10:19] LABS: CALCIUM 8.4 mg/dL (8.5-10.1); CREATININE 0.9 mg/dL (0.7-1.3); GFR 89.7; POTASSIUM 3.3 mmol/L (3.5-5.1)
--- NOTE | 2018-08-11 10:46 | PDOC ---
PROGRESS NOTES Chief Complaint Chief Complaint R hand abscess s/p I&D History of MRSA Hypertension History of Present Illness History of Present Illness Mr. Root is a 47 yo male presenting with recurrent infection of R hand. Patient has history of IV drug use and MRSA. He says he feels much better today. Pain and swelling significantly reduced. Patient is eager to be discharged. Surgical site c/d/i. Discussed with nurse. ID following. Vitals Vitals Vital Signs Date Time Temp Pulse Resp B/P (MAP) Pulse Ox O2 Delivery O2 Flow Rate FiO2 08/11/18 08:33 66 159/101 08/11/18 07:45 Room Air 08/11/18 07:00 97.2 16 96 97.2 Physical Exam General: Alert, Cooperative Heart: Regular rate, No murmurs Lungs: Clear Abdomen: Normal bowel sounds, Soft, No tenderness, No hepatosplenomegaly, No masses Extremities: No cyanosis, No edema, Normal pulses, Other (R hand has multiple sutures, 1+ swelling, erythema reduced) Skin: No rashes Labs LABS Laboratory Tests Test 08/10/18 12:26 08/11/18 09:15 White Blood Count 10.3 x10^3/uL (4.0-11.0) 9.2 x10^3/uL (4.0-11.0) Red Blood Count 4.89 x10^6/uL (4.30-5.70) 4.55 x10^6/uL (4.30-5.70) Hemoglobin 14.1 g/dL (13.0-17.5) 13.2 g/dL (13.0-17.5) Hematocrit 42.0 % (39.0-53.0) 39.2 % (39.0-53.0) Mean Corpuscular Volume 86 fL (79-100) 86 fL (79-100) Mean Corpuscular Hemoglobin 29 pg (25-35) 29 pg (25-35) Mean Corpuscular Hemoglobin Concent 34 g/dL (31-37) 34 g/dL (31-37) Red Cell Distribution Width 14.0 % (11.5-14.5) 13.6 % (11.5-14.5) Platelet Count 293 x10^3/uL (140-400) 276 x10^3/uL (140-400) Neutrophils (%) (Auto) 79 % (31-73) 74 % (31-73) Lymphocytes (%) (Auto) 15 % (24-48) 17 % (24-48) Monocytes (%) (Auto) 5 % (0-9) 7 % (0-9) Eosinophils (%) (Auto) 1 % (0-3) 2 % (0-3) Basophils (%) (Auto) 0 % (0-3) 1 % (0-3) Neutrophils # (Auto) 8.1 x10^3uL (1.8-7.7) 6.8 x10^3uL (1.8-7.7) Lymphocytes # (Auto) 1.6 x10^3/uL (1.0-4.8) 1.6 x10^3/uL (1.0-4.8) Monocytes # (Auto) 0.5 x10^3/uL (0.0-1.1) 0.6 x10^3/uL (0.0-1.1) Eosinophils # (Auto) 0.1 x10^3/uL (0.0-0.7) 0.2 x10^3/uL (0.0-0.7) Basophils # (Auto) 0.0 x10^3/uL (0.0-0.2) 0.0 x10^3/uL (0.0-0.2) Erythrocyte Sedimentation Rate 19 (0-15) Sodium Level 146 mmol/L (136-145) 144 mmol/L (136-145) Potassium Level 3.1 mmol/L (3.5-5.1) 3.3 mmol/L (3.5-5.1) Chloride Level 107 mmol/L (98-107) 108 mmol/L (98-107) Carbon Dioxide Level 28 mmol/L (21-32) 26 mmol/L (21-32) Anion Gap 11 (6-14) 10 (6-14) Blood Urea Nitrogen 5 mg/dL (8-26) 3 mg/dL (8-26) Creatinine 1.0 mg/dL (0.7-1.3) 0.9 mg/dL (0.7-1.3) Estimated GFR (Cockcroft-Gault) 79.4 89.7 BUN/Creatinine Ratio 5 (6-20) Glucose Level 116 mg/dL (70-99) 101 mg/dL (70-99) Calcium Level 8.7 mg/dL (8.5-10.1) 8.4 mg/dL (8.5-10.1) Total Bilirubin 0.2 mg/dL (0.2-1.0) Aspartate Amino Transf (AST/SGOT) 12 U/L (15-37) Alanine Aminotransferase (ALT/SGPT) 14 U/L (16-63) Alkaline Phosphatase 72 U/L (46-116) C-Reactive Protein, Quantitative 15.0 mg/L (0-3.3) Total Protein 6.6 g/dL (6.4-8.2) Albumin 2.8 g/dL (3.4-5.0) Albumin/Globulin Ratio 0.7 (1.0-1.7) Review of Systems Review of Systems Denies pain Denies swelling Denies discharge Assessment and Plan Assessmemt and Plan Problems Medical Problems: (1) Abscess of right forearm Status: Acute (2) Abscess of right hand Status: Acute Assessment: R hand abscess s/p I&D last admission History of MRSA Hypertension Plan: Continue keflex at home Continue home meds Return to ED with worsening swelling or pain Follow up with PCP outpatient Appreciate ID input Comment Review of Relevant I have reviewed the following items teresa (where applicable) has been applied. Labs Laboratory Tests Test 08/10/18 12:26 08/11/18 09:15 White Blood Count 10.3 x10^3/uL (4.0-11.0) 9.2 x10^3/uL (4.0-11.0) Red Blood Count 4.89 x10^6/uL (4.30-5.70) 4.55 x10^6/uL (4.30-5.70) Hemoglobin 14.1 g/dL (13.0-17.5) 13.2 g/dL (13.0-17.5) Hematocrit 42.0 % (39.0-53.0) 39.2 % (39.0-53.0) Mean Corpuscular Volume 86 fL (79-100) 86 fL (79-100) Mean Corpuscular Hemoglobin 29 pg (25-35) 29 pg (25-35) Mean Corpuscular Hemoglobin Concent 34 g/dL (31-37) 34 g/dL (31-37) Red Cell Distribution Width 14.0 % (11.5-14.5) 13.6 % (11.5-14.5) Platelet Count 293 x10^3/uL (140-400) 276 x10^3/uL (140-400) Neutrophils (%) (Auto) 79 % (31-73) 74 % (31-73) Lymphocytes (%) (Auto) 15 % (24-48) 17 % (24-48) Monocytes (%) (Auto) 5 % (0-9) 7 % (0-9) Eosinophils (%) (Auto) 1 % (0-3) 2 % (0-3) Basophils (%) (Auto) 0 % (0-3) 1 % (0-3) Neutrophils # (Auto) 8.1 x10^3uL (1.8-7.7) 6.8 x10^3uL (1.8-7.7) Lymphocytes # (Auto) 1.6 x10^3/uL (1.0-4.8) 1.6 x10^3/uL (1.0-4.8) Monocytes # (Auto) 0.5 x10^3/uL (0.0-1.1) 0.6 x10^3/uL (0.0-1.1) Eosinophils # (Auto) 0.1 x10^3/uL (0.0-0.7) 0.2 x10^3/uL (0.0-0.7) Basophils # (Auto) 0.0 x10^3/uL (0.0-0.2) 0.0 x10^3/uL (0.0-0.2) Erythrocyte Sedimentation Rate 19 (0-15) Sodium Level 146 mmol/L (136-145) 144 mmol/L (136-145) Potassium Level 3.1 mmol/L (3.5-5.1) 3.3 mmol/L (3.5-5.1) Chloride Level 107 mmol/L (98-107) 108 mmol/L (98-107) Carbon Dioxide Level 28 mmol/L (21-32) 26 mmol/L (21-32) Anion Gap 11 (6-14) 10 (6-14) Blood Urea Nitrogen 5 mg/dL (8-26) 3 mg/dL (8-26) Creatinine 1.0 mg/dL (0.7-1.3) 0.9 mg/dL (0.7-1.3) Estimated GFR (Cockcroft-Gault) 79.4 89.7 BUN/Creatinine Ratio 5 (6-20) Glucose Level 116 mg/dL (70-99) 101 mg/dL (70-99) Calcium Level 8.7 mg/dL (8.5-10.1) 8.4 mg/dL (8.5-10.1) Total Bilirubin 0.2 mg/dL (0.2-1.0) Aspartate Amino Transf (AST/SGOT) 12 U/L (15-37) Alanine Aminotransferase (ALT/SGPT) 14 U/L (16-63) Alkaline Phosphatase 72 U/L (46-116) C-Reactive Protein, Quantitative 15.0 mg/L (0-3.3) Total Protein 6.6 g/dL (6.4-8.2) Albumin 2.8 g/dL (3.4-5.0) Albumin/Globulin Ratio 0.7 (1.0-1.7) Laboratory Tests Test 08/10/18 12:26 08/11/18 09:15 White Blood Count 10.3 x10^3/uL (4.0-11.0) 9.2 x10^3/uL (4.0-11.0) Red Blood Count 4.89 x10^6/uL (4.30-5.70) 4.55 x10^6/uL (4.30-5.70) Hemoglobin 14.1 g/dL (13.0-17.5) 13.2 g/dL (13.0-17.5) Hematocrit 42.0 % (39.0-53.0) 39.2 % (39.0-53.0) Mean Corpuscular Volume 86 fL (79-100) 86 fL (79-100) Mean Corpuscular Hemoglobin 29 pg (25-35) 29 pg (25-35) Mean Corpuscular Hemoglobin Concent 34 g/dL (31-37) 34 g/dL (31-37) Red Cell Distribution Width 14.0 % (11.5-14.5) 13.6 % (11.5-14.5) Platelet Count 293 x10^3/uL (140-400) 276 x10^3/uL (140-400) Neutrophils (%) (Auto) 79 % (31-73) 74 % (31-73) Lymphocytes (%) (Auto) 15 % (24-48) 17 % (24-48) Monocytes (%) (Auto) 5 % (0-9) 7 % (0-9) Eosinophils (%) (Auto) 1 % (0-3) 2 % (0-3) Basophils (%) (Auto) 0 % (0-3) 1 % (0-3) Neutrophils # (Auto) 8.1 x10^3uL (1.8-7.7) 6.8 x10^3uL (1.8-7.7) Lymphocytes # (Auto) 1.6 x10^3/uL (1.0-4.8) 1.6 x10^3/uL (1.0-4.8) Monocytes # (Auto) 0.5 x10^3/uL (0.0-1.1) 0.6 x10^3/uL (0.0-1.1) Eosinophils # (Auto) 0.1 x10^3/uL (0.0-0.7) 0.2 x10^3/uL (0.0-0.7) Basophils # (Auto) 0.0 x10^3/uL (0.0-0.2) 0.0 x10^3/uL (0.0-0.2) Erythrocyte Sedimentation Rate 19 (0-15) Sodium Level 146 mmol/L (136-145) 144 mmol/L (136-145) Potassium Level 3.1 mmol/L (3.5-5.1) 3.3 mmol/L (3.5-5.1) Chloride Level 107 mmol/L (98-107) 108 mmol/L (98-107) Carbon Dioxide Level 28 mmol/L (21-32) 26 mmol/L (21-32) Anion Gap 11 (6-14) 10 (6-14) Blood Urea Nitrogen 5 mg/dL (8-26) 3 mg/dL (8-26) Creatinine 1.0 mg/dL (0.7-1.3) 0.9 mg/dL (0.7-1.3) Estimated GFR (Cockcroft-Gault) 79.4 89.7 BUN/Creatinine Ratio 5 (6-20) Glucose Level 116 mg/dL (70-99) 101 mg/dL (70-99) Calcium Level 8.7 mg/dL (8.5-10.1) 8.4 mg/dL (8.5-10.1) Total Bilirubin 0.2 mg/dL (0.2-1.0) Aspartate Amino Transf (AST/SGOT) 12 U/L (15-37) Alanine Aminotransferase (ALT/SGPT) 14 U/L (16-63) Alkaline Phosphatase 72 U/L (46-116) C-Reactive Protein, Quantitative 15.0 mg/L (0-3.3) Total Protein 6.6 g/dL (6.4-8.2) Albumin 2.8 g/dL (3.4-5.0) Albumin/Globulin Ratio 0.7 (1.0-1.7) Medications Current Medications Sodium Chloride 1,000 ml @ 100 mls/hr Q10H IV Last administered on 08/11/18at 00:33; Start 08/10/18 at 12:00 Ondansetron HCl (Zofran) 4 mg PRN Q6HRS PRN IV NAUSEA/VOMITING; Start 08/10/18 at 11:15 Prochlorperazine Edisylate (Compazine) 10 mg PRN Q6HRS PRN IV NAUSEA/VOMITING, 2nd CHOICE; Start 08/10/18 at 11:15 Al Hydroxide/Mg Hydroxide (Mylanta Plus Xs) 30 ml PRN Q3HRS PRN PO HEARTBURN / GAS; Start 08/10/18 at 11:15 Zolpidem Tartrate (Ambien) 5 mg PRN QHS PRN PO INSOMNIA, MAY REPEAT IN 1HR; Start 08/10/18 at 11:15 Oxycodone HCl (Roxicodone) 5 mg PRN Q3HRS PRN PO BREAKTHROUGH PAIN Last administered on 08/10/18at 15:10; Start 08/10/18 at 11:15 Morphine Sulfate (Morphine Sulfate) 2 mg PRN Q2HR PRN IV PAIN Last administered on 08/10/18at 17:30; Start 08/10/18 at 11:15; Stop 08/10/18 at 17:35 ; Status DC Ketorolac Tromethamine (Toradol 15mg Vial) 15 mg PRN Q6HRS PRN IV INFLAMMATION/ MILD PAIN; Start 08/10/18 at 11:15; Stop 08/15/18 at 11:14 Acetaminophen (Tylenol) 650 mg PRN Q6HRS PRN PO Headaches, Temp > 101.5F; Start 08/10/18 at 11:15 Magnesium Hydroxide (Milk Of Magnesia) 2,400 mg PRN Q12HR PRN PO CONSTIPATION; Start 08/10/18 at 11:15 Bisacodyl (Dulcolax Supp) 10 mg PRN DAILY PRN [place] CONSTIPATION; Start 08/10/18 at 11:15 Vancomycin HCl (Vanco Per Pharmacy) 1 each PRN DAILY PRN MC SEE COMMENTS Last administered on 08/10/18at 14:21; Start 08/10/18 at 11:15; Stop 08/11/18 at 09:15 ; Status DC Piperacillin Sod/ Tazobactam Sod (Zosyn Per Pharmacy) 1 each PRN DAILY PRN MC SEE COMMENTS; Start 08/10/18 at 11:15; Stop 08/11/18 at 10:11; Status DC Hydralazine HCl (Apresoline Inj) 10 mg PRN Q4HRS PRN IVP ELEVATED BP, SEE COMMENTS; Start 08/10/18 at 11:30 Cyclobenzaprine HCl (Flexeril) 10 mg TID PO Last administered on 08/11/18at 08: 33; Start 08/10/18 at 14:00 Temazepam (Restoril) 30 mg PRN QHS PRN PO INSOMNIA; Start 08/10/18 at 11:30 Lisinopril (Prinivil) 30 mg DAILY PO Last administered on 08/11/18at 08:33; Start 08/11/18 at 09:00 Lorazepam (Ativan) 3 mg DAILY PO ; Start 08/11/18 at 09:00; Stop 08/11/18 at 09: 00; Status DC Non-Formulary Medication (Orphenadrine Citrate ) 1 tab BID PO ; Start 08/10/18 at 21:00; Status UNV Non-Formulary Medication ([brintellix] ) 10 mg DAILY PO ; Start 08/11/18 at 09: 00; Status UNV Piperacillin Sod/ Tazobactam Sod 3.375 gm/Sodium Chloride 50 ml @ 100 mls/hr 1X ONCE IV ; Start 08/10/18 at 11:30; Stop 08/10/18 at 11:59; Status UNV Vancomycin HCl 2 gm/Sodium Chloride 500 ml @ 250 mls/hr 1X ONCE IV Last administered on 08/10/18at 13:24; Start 08/10/18 at 12:00; Stop 08/10/18 at 13:59 ; Status DC Piperacillin Sod/ Tazobactam Sod 3.375 gm/Sodium Chloride 50 ml @ 100 mls/hr Q6HRS IV Last administered on 08/11/18at 06:54; Start 08/10/18 at 11:30; Stop at 08:59; Status DC Alprazolam (Xanax) 1 mg PRN Q6HRS PRN PO ANXIETY / AGITATION Last administered on 08/11/18at 08:35; Start 08/10/18 at 14:15 Vancomycin HCl 1.25 gm/Sodium Chloride 250 ml @ 167 mls/hr Q8H IV ; Start 08/10 at 21:00; Status Cancel Vancomycin HCl (Vancomycin Trough Level) 1 each 1X ONCE MC ; Start 08/11/18 at 12:30; Stop 08/11/18 at 12:30; Status DC Vancomycin HCl 1 gm/Sodium Chloride 250 ml @ 250 mls/hr Q8H IV Last administered on 08/11/18at 05:09; Start 08/10/18 at 21:00; Stop 08/11/18 at 08:59 ; Status DC Nicotine (Nicoderm Cq 21mg) 1 patch DAILY TD Last administered on 08/11/18at 08: 33; Start 08/10/18 at 15:00 Morphine Sulfate (Morphine Sulfate) 2 mg PRN Q4HRS PRN IV PAIN Last administered on 08/11/18at 03:38; Start 08/10/18 at 17:45 Cephalexin HCl (Keflex) 500 mg QID PO Last administered on 08/11/18at 09:21; Start 08/11/18 at 10:00 Active Scripts Active Orphenadrine Citrate 100 Mg Tablet.er 1 Tab PO BID Driving or alcohol intake while taking this medication Cyclobenzaprine Hcl 10 Mg Tablet 10 Mg PO TID Reported [brintellix] 10 10 Mg PO DAILY Lisinopril 30 Mg Tablet 30 Mg PO DAILY Lorazepam 2 Mg Tablet 3 Mg PO DAILY Temazepam 30 Mg Capsule 30 Mg PO HS PRN Vitals/I & O Vital Sign - Last 24 Hours 08/10/18 08/10/18 08/10/18 08/10/18 11:20 12:22 12:45 13:26 Temp 97.8 97.8 Pulse 74 70 69 Resp 17 18 B/P (MAP) 168/90 (116) 159/92 (114) 168/105 (126) Pulse Ox 96 98 96 96 O2 Delivery Room Air Room Air Room Air Room Air 08/10/18 08/10/18 08/10/18 08/10/18 13:45 14:00 15:00 15:10 Temp 97.9 97.9 Pulse 70 Resp 18 B/P (MAP) 174/79 (110) Pulse Ox 99 O2 Delivery Room Air Room Air Room Air Room Air 08/10/18 08/10/18 08/10/18 08/10/18 16:19 17:30 19:00 20:15 Temp 98.1 98.1 Pulse 67 Resp 18 B/P (MAP) 155/88 (110) Pulse Ox 99 O2 Delivery Room Air Room Air Room Air Room Air 08/10/18 08/10/18 08/11/18 08/11/18 21:49 23:00 03:00 03:38 Temp 98.3 97.4 98.3 97.4 Pulse 63 53 Resp 18 18 B/P (MAP) 148/92 (110) 147/91 (109) Pulse Ox 96 99 O2 Delivery Room Air Room Air Room Air Room Air 08/11/18 08/11/18 08/11/18 08/11/18 04:08 07:00 07:45 08:33 Temp 97.2 97.2 Pulse 66 66 Resp 16 B/P (MAP) 159/101 (120) 159/101 Pulse Ox 96 O2 Delivery Room Air Room Air Room Air Intake and Output 08/10/18 08/10/18 08/11/18 15:00 23:00 07:00 Intake Total 800 ml Balance 800 ml GEN ADKINS III DO Aug 11, 2018 10:46
--- NOTE | 2018-08-11 11:00 | NUR ---
Discharge Note: ROBERT SHULTZ Discharge instructions and discharge home medications reviewed with Patient and a copy given. All questions have been answered and understanding verbalized. The following instructions and handouts were given: information about wound infection. Discontinued lines and drains: IV line in left forearm removed, catheter tip intact. Patient discharged to home with self care with , patient ambulated to discharge vehicle.
--- NOTE | 2018-08-11 11:01 | NUR ---
Dr. Velásquez stated patient needed to be discharged with keflex prescription. Patient stated he already had it at home.
--- NOTE | 2018-08-11 11:47 | DS ---
DATE OF DISCHARGE: 08/11/2018 ADMISSION DIAGNOSIS: Right hand infection with abscesses. DISCHARGE DIAGNOSIS: Resolving right hand infection. CONSULTS: Orthopedics. PROCEDURES: None. HOSPITAL COURSE: The patient is a pleasant middle-aged male, who presented with right hand abscesses. He states at work, he gets lots of splinters into his hand. He was cutting wood. Sometimes he uses his teeth to pull the splinters out. Sure enough they got infected and he had abscesses on his hand. He was admitted. We gave him IV antibiotics. We consulted Orthopedics. His prior cultures showed that he grew Staph aureus. He apparently had been admitted within the past week with similar issues and had an incision and drainage by Orthopedics at that time. Basically, at this admission he has done well. We gave him some IV antibiotics. I discussed the case with the nurse. I did examine the patient this morning. Heart tones were normal. His lungs were clear. His extremities looked better. His wounds are healing and okay with Orthopedics. We plan to discharge. DISPOSITION: Home. ACTIVITY: As tolerated. DIET: Low sodium. MEDICATIONS: Please see the MRAD. He states he has prescriptions for Keflex at home. TOTAL TIME: 32 minutes. GEN ADKINS DO DR: MALIK/jennifer JOB#: [id number] / [id number]
== END 2018-08-11 11:00 | disposition home or self-care (01) | DRG 872 ==
LOC: ER 10:27 → 4 NORTH 11:08
PROVIDERS: ADMIT Internal Medicine; ATTEND Internal Medicine
DX: A41.9 Sepsis, unspecified organism (principal); L02.511 Cutaneous abscess of right hand; L03.113 Cellulitis of right upper limb; L02.413 Cutaneous abscess of right upper limb; N39.0 Urinary tract infection, site not specified; I10 Essential (primary) hypertension; F32.9 Major depressive disorder, single episode, unspecified; F41.9 Anxiety disorder, unspecified; Z83.3 Family history of diabetes mellitus; Z86.14 Personal history of Methicillin resistant Staphylococcus aureus infection
CPT/HCPCS: 36415; 80048; 80053; 85025; 85651; 86140; 87040; 87641; J2270; J2543; J3370; J7040; J7050; 99285-25; J7030